=== PATIENT | female | born 1965 | race Caucasian/White ===

== ENCOUNTER → 2025-01-03 | Outpatient (CLI) | payer MEDICARE, MEDICAID, SELFPAY ==
[2025-01-03 14:14] LABS: Basophils # (Auto) 0.1 Thou/mm3 (0.0-0.2); Basophils % (Auto) 1 % (0-2.5); Eosinophils # (Auto) 0.2 Thou/mm3 (0.0-0.5); Eosinophils % (Auto) 3 % (0-10); Hematocrit 34.7 % (36.0-46.0); Hemoglobin 11.3 g/dL (12.0-16.0); Immature Granulocytes % (Auto) 0 % (0-0); Immature Granulocytes Auto 0.01 Thou/mm3 (0.00-0.00); Lymphocytes % (Auto) 32 % (10-50); Mean Corpuscular HGB Conc 32.6 g/dl (31.0-37.0); Mean Corpuscular Hemoglobin 30.7 pg (25.0-35.0); Mean Corpuscular Volume 94 fL (80-100); Monocytes # (Auto) 0.4 Thou/mm3 (0.0-0.8); Monocytes % (Auto) 6 % (0-12); Neutrophils # (Auto) 3.7 Thou/mm3 (1.8-7.7); Neutrophils % (Auto) 58 % (37-80); Nucleated Red Blood Cell % 0 /100 WBC (0); Platelet Count 221 Thou/mm3 (140-440); RDW Standard Deviation 46.5 fL (36.4-46.3); Red Blood Count 3.68 Miln/mm3 (4.00-5.20); White Blood Count 6.3 Thou/mm3 (3.6-11.0)
[2025-01-03 14:30] LABS: Alanine Aminotransferase 25 U/L (10-49); Albumin/Globulin Ratio 1.8 (1.2-2.2); Alkaline Phosphatase 45 U/L (46-116); Anion Gap 8 (7-16); Aspartate Amino Transferase 21 U/L (0-34); BUN/Creatinine Ratio 23 Ratio (12-20); Bilirubin,Total 0.3 mg/dL (0.3-1.2); Blood Urea Nitrogen 28 mg/dL (9-23); Calcium 8.9 mg/dL (8.3-10.6); Calcium (Corrected) 8.9 mg/dL (8.5-10.1); Carbon Dioxide 25.9 mMol/L (20.0-31.0); Cardiac Risk Estimate 2.1 RATIO (3.7-5.6); Chloride 108 mMol/L (98-107); Cholesterol 122 mg/dL (132-200); Creatinine (Component) 1.2 mg/dL (0.6-1.3); Free T4 (Free Thyroxine) 0.86 ng/dL (0.89-1.76); Globulin 2.2 gm/dL (2.3-3.5); Glucose 75 mg/dL (74-106); HDL Cholesterol 58 mg/dL (40-60); LDL Cholesterol,Calculated 52 mg/dL (0-130); Osmolality,Calculated 287 (275-295); Potassium 4.2 mMol/L (3.4-5.1); Sodium 142 mMol/L (136-145); Thyroid Stimulating Hormone 2.01 uIU/mL (0.55-4.78); Total Protein 6.2 gm/dL (5.7-8.2); Triglycerides 60 mg/dL (30-150); eGFR 52 See Note
[2025-01-03 14:33] LABS: Glucose Estimated Average 91 mg/dL (80-131); Hemoglobin A1C 4.8 % Hgb (4.8-6.0)
[2025-01-03 14:45] LABS: Syphilis Nonreactive (Nonreactive)
[2025-01-03 15:03] LABS: Hepatitis C Antibody Non Reactive (Non React); Vitamin D 25 Hydroxy Total 31.7 ng/mL (7.3-40.2)
[2025-01-06 22:08] LABS: HCV RNA, PCR <15 NOT DETECTED IU/mL
[2025-01-07 07:04] LABS: HCV RNA, PCR Log IU <1.18 NOT DETECTED Log IU/mL
== END | disposition home or self-care (01) ==
LOC: COPL 13:04
PROVIDERS: PCP Internal Medicine; Referring Provider Internal Medicine; Visit Provider Internal Medicine
DX: Z11.3 Encounter for screening for infections with a predominantly sexual mode of transmission (principal); Z76.89 Persons encountering health services in other specified circumstances
CPT/HCPCS: 36415; 80053; 80061; 82306; 83036; 84439; 84443; 85025; 86780; 86803; 87522

== ENCOUNTER 2025-02-04 14:25 | Emergency (ER) | payer MEDICARE, MEDICAID, SELFPAY ==
[2025-02-04 14:26] VITALS: BMI 22.1
[2025-02-04 14:51] VITALS: BP 97/54; PULSE 76; RESP 18; TEMP 36.9; O2SAT 96
--- NOTE | 2025-02-04 14:58 | PD.EDRME ---
Rapid Medical Screening Exam RME Arrival date/time: 02/04/25 14:25 Chief Complaint: General Adult/Misc Complain Time Seen by Provider: 02/04/25 14:35 Vital signs: Vital Signs Temperature 98.4 F 02/04/25 14:51 Pulse Rate 76 02/04/25 14:51 Respiratory Rate 18 02/04/25 14:51 Blood Pressure 97/54 L 02/04/25 14:51 Pulse Oximetry (%) 96 02/04/25 14:51 Oxygen Delivery Method Room Air 02/04/25 14:51 RME Narrative: General weakness the past 2 weeks with BPs in systolic 80-90s since Tuesday. Patient c/o urinary urgency and pressure. No fever, vomiting or flank pain.
--- NOTE | 2025-02-04 14:59 | EKG_ITS ---
[facility] Test Date: 2025-02-04 Pat Name: HERSON PROCTOR Department: Room: - Gender: Female Last Ironer: : 1965 Requested By: Sivakumar Young Order Number: [id number] Reading MD: Sivakumar Young Measurements Intervals [place] Rate: 72 P: 76 MT: 165 QRS: 58 QRSD: 82 T: 70 QT: 393 QTc: 433 Interpretive Statements SINUS RHYTHM No previous ECG available for comparison /store/S0/[id number]
[2025-02-04 15:19] LABS: Basophils # (Auto) 0.1 Thou/mm3 (0.0-0.2); Basophils % (Auto) 1 % (0-2.5); Eosinophils # (Auto) 0.2 Thou/mm3 (0.0-0.5); Eosinophils % (Auto) 3 % (0-10); Hematocrit 35.2 % (36.0-46.0); Hemoglobin 11.4 g/dL (12.0-16.0); Immature Granulocytes % (Auto) 0 % (0-0); Immature Granulocytes Auto 0.02 Thou/mm3 (0.00-0.00); Lymphocytes # (Auto) 2.1 Thou/mm3 (1.0-4.8); Lymphocytes % (Auto) 29 % (10-50); Mean Corpuscular HGB Conc 32.4 g/dl (31.0-37.0); Mean Corpuscular Hemoglobin 30.8 pg (25.0-35.0); Mean Corpuscular Volume 95 fL (80-100); Monocytes # (Auto) 0.4 Thou/mm3 (0.0-0.8); Monocytes % (Auto) 5 % (0-12); Neutrophils # (Auto) 4.5 Thou/mm3 (1.8-7.7); Neutrophils % (Auto) 62 % (37-80); Nucleated Red Blood Cell % 0 /100 WBC (0); Platelet Count 216 Thou/mm3 (140-440); RDW Standard Deviation 49.1 fL (36.4-46.3); White Blood Count 7.3 Thou/mm3 (3.6-11.0)
[2025-02-04 15:39] LABS: Alanine Aminotransferase 32 U/L (10-49); Albumin, Serum 4.2 gm/dL (3.4-4.8); Albumin/Globulin Ratio 1.8 (1.2-2.2); Alkaline Phosphatase 44 U/L (46-116); Anion Gap 8 (7-16); Aspartate Amino Transferase 39 U/L (0-34); BUN/Creatinine Ratio 22 Ratio (12-20); Bilirubin,Total 0.2 mg/dL (0.3-1.2); Blood Urea Nitrogen 28 mg/dL (9-23); Calcium 9.2 mg/dL (8.3-10.6); Calcium (Corrected) 9.2 mg/dL (8.5-10.1); Carbon Dioxide 21.7 mMol/L (20.0-31.0); Chloride 111 mMol/L (98-107); Creatinine (Component) 1.3 mg/dL (0.6-1.3); Estimated Creatinine Clearance 41.4 mL/min (>60); Globulin 2.4 gm/dL (2.3-3.5); Glucose 93 mg/dL (74-106); Osmolality,Calculated 286 (275-295); Potassium 4.8 mMol/L (3.4-5.1); Sodium 141 mMol/L (136-145); Total Protein 6.6 gm/dL (5.7-8.2); Troponin I < 0.002 ng/mL (0.0-0.045); eGFR 47 See Note
[2025-02-04 15:56] LABS: Collection Type, Urine Clean Catch
[2025-02-04 16:10] LABS: Bilirubin,Urine Negative (Negative); Blood,Urine Negative (Negative); Clarity,Urine Clear (Clear/Hazy); Color,Urine Drk-Yellow (Lt Yel-Yel); Glucose, Urine Negative (Negative); Ketones,Urine Negative (Negative); Leukocyte Esterase,Urine Negative (Negative); Nitrite,Urine Negative (Negative); PH,Urine 5.5 (5.0-7.0); Protein,Urine Negative (Neg - Trace); RBC,Urine 1 /hpf (0-3); Specific Gravity,Urine 1.016 (1.001-1.035); Squamous Epithelial Cell,Urine 3 /hpf (0-5); Transitional Epi Cells,Urine < 1 /hpf (0-5); Urobilinogen,Urine Negative mg/dL (0.0-1.0); WBC,Urine 2 /hpf (0-5)
--- NOTE | 2025-02-04 19:12 | PC.NURSE ---
NO ANSWER AT ER LOBBY OR OUTSIDE ER TO BE RE EVALUATED.
--- NOTE | 2025-02-04 19:37 | PC.NURSE ---
NO ANSWER FOR VITALS AND REVIEW
--- NOTE | 2025-02-04 20:04 | PD.EDADDENDU ---
Emergency Room Addendum Addendum Narrative: Patient was initially seen by our RICARDO and diagnostic tests ordered. When I looked for the patient to start my evaluation and treatment, I was told the patient eloped. Long Horvath MD
== END 2025-02-04 19:37 | disposition left against medical advice (07) ==
PROVIDERS: Physician Assistant; Emergency Provider Emergency Medicine; PCP Internal Medicine
DX: R53.1 Weakness (principal); R39.15 Urgency of urination; Z53.29 Procedure and treatment not carried out because of patient's decision for other reasons
CPT/HCPCS: 36415; 80053; 81001; 84484; 85025; 87086; 93005; 99281

== ENCOUNTER → 2025-02-25 | Outpatient (CLI) | payer MEDICARE, MEDICAID, SELFPAY ==
--- NOTE | 2025-02-25 | XR_ITS ---
Examination: Lumbar spine 3 views TECHNIQUE: AP lateral coned lateral lower lumbar spine 3 views Exam date and time: February 25, 2025 1128 hours INDICATIONS: Low back pain several years. FINDINGS: Lumbar dextroscoliosis 12 degrees Transpedicular lumbar fusion L4-S1 with anatomic alignment Mild to moderate lumbar degenerative disc disease above the fusion site No lumbar fracture IMPRESSION: Mild to moderate lumbar degenerative disc disease above the fusion site
--- NOTE | 2025-02-25 | XR_ITS ---
Examination: Cervical spine 3 views Technique one AP lateral coned AP odontoid cervical spine 3 views Exam date and time: February 25, 2025 1115 hours INDICATIONS: Neck pain beginning several years ago. FINDINGS: Adequate alignment cervical vertebral bodies. No cervical fracture. Intact odontoid. Moderate to advanced degenerative disc disease C5-C6 IMPRESSION: Moderate to advanced degenerative disc disease C5-C6
== END | disposition home or self-care (01) ==
LOC: CDIM 10:36
PROVIDERS: PCP Internal Medicine; Referring Provider Internal Medicine Pulmonary Disease; Visit Provider Internal Medicine Pulmonary Disease
DX: M51.369 Other intervertebral disc degeneration, lumbar region without mention of lumbar back pain or lower extremity pain (principal); M43.26 Fusion of spine, lumbar region; M50.322 Other cervical disc degeneration at C5-C6 level
CPT/HCPCS: 72040; 72100

== ENCOUNTER 2025-04-29 16:27 | Inpatient (IN) | payer MEDICARE, MEDICAID, SELFPAY ==
[2025-04-29] VITALS (22 sets, daily range): BP systolic 73–154; BP diastolic 40–88; PULSE 43–82; RESP 2–100; TEMP 36.6; O2SAT 97–100; BMI 23.3; BMI 21.6
--- NOTE | 2025-04-29 16:56 | EKG_ITS ---
[facility] Test Date: 2025-04-29 Pat Name: HERSON PROCTOR Department: Room: - Gender: Female Gymnastic Teacher: : 1965 Requested By: Dewayne Chapman Order Number: [id number] Reading MD: Dewayne Chapman Measurements Intervals [place] Rate: 51 P: 58 PA: 182 QRS: 2 QRSD: 89 T: 36 QT: 436 QTc: 403 Interpretive Statements SINUS BRADYCARDIA Compared to ECG 02/04/2025 15:05:33 Sinus rhythm no longer present /store/S0/[id number]/[id number].pdf
--- NOTE | 2025-04-29 16:56 | XR_ITS ---
Examination: AP chest single view TECHNIQUE: AP portable upright chest single view Date and time: April 29, 2025 at 1716 hours INDICATIONS: Cough and shortness of breath chest pain beginning 3 days ago. FINDINGS: Minimal prominence left ventricle Mild vascular congestion. No lobar pneumonia or pulmonary edema. Moderate osteopenia IMPRESSION: Mild vascular congestion.
[2025-04-29] MEDS: DEXTROSE 50%-WATER INJ 50 ML SYRINGE IVP ×2 (17:14→20:45)
--- NOTE | 2025-04-29 17:14 | PD.EDWEAK ---
ED Weakness RME/HPI General Chief complaint: Weakness Stated complaint: WEAKNESS Time Seen by Provider: 04/29/25 16:41 Arrival date/time: 04/29/25 16:27 Limitations: no limitations RME / HPI RME / HPI Narrative: 59 year old female presents to the ED BIBA from her PCP's office due to 5-6 days of progressive weakness. She reports experiencing dark stools during this time but denies any bright red blood or visible blood in the stool. Normally active and states she has felt significantly fatigued over the past several days. She has required rest with minimal activity. She also notes poor oral intake over this same period. At her PCP?s office, her blood glucose was 48 and blood pressure in the 70s systolic. Medical hx includes gastric bypass, a prior gastric tumor, gastric resection with esophagojejunostomy. Related Data Home Medications ?Medication ?Instructions ?Recorded ?Confirmed carisoprodol 350 mg tablet 350 mg PO QIDPRN PRN PAIN 30 days 03/19/14 11/01/22 ##0 escitalopram oxalate 20 mg tablet 20 mg PO QDAY 30 days ##0 03/19/14 11/01/22 (Lexapro) gabapentin 300 mg capsule 300 mg PO TID #0 caps 03/19/14 11/01/22 montelukast 10 mg tablet 10 mg PO HS #0 tabs 03/19/14 11/01/22 (Singulair) verapamil 240 mg tablet,extended 240 mg PO HS ##0 03/19/14 11/01/22 release (Calan SR) albuterol sulfate 90 mcg/actuation 90 mcg inhalation PRN PRN Wheezing 08/17/21 11/01/22 aerosol inhaler aspirin 81 mg tablet,delayed 81 mg PO BID 08/17/21 11/01/22 release biotin 10,000 mcg capsule 10,000 mcg PO QDAY 08/17/21 11/01/22 bupropion HCl 150 mg tablet,12 hr 300 mg PO QDAY 08/17/21 11/01/22 sustained-release cholecalciferol (vitamin D3) 50 50 mcg PO BID 08/17/21 11/01/22 mcg (2,000 unit) capsule (Vitamin D3) clonidine HCl 0.1 mg tablet 0.1 mg PO QDAY 08/17/21 11/01/22 cyanocobalamin (vitamin B-12) 100 100 mcg PO QDAY 08/17/21 11/01/22 mcg tablet (Vitamin B-12) ferrous sulfate 325 mg (65 mg 325 mg PO QDAY 08/17/21 11/01/22 iron) tablet (Iron (ferrous sulfate)) hydrocodone 5 mg-acetaminophen 325 5 - 325 tab PO BID 08/17/21 11/01/22 mg tablet Held on 11/01/22. Instructions: Resume on 11/02/22. lisinopril 20 mg tablet 20 mg PO QDAY 08/17/21 11/01/22 pantoprazole 40 mg tablet,delayed 40 mg PO QDAY 08/17/21 11/01/22 release rosuvastatin 5 mg tablet 5 mg PO QDAY 08/17/21 11/01/22 topiramate 50 mg tablet 50 mg PO TID 08/17/21 11/01/22 verapamil 180 mg tablet,extended 180 mg PO QDAY 08/17/21 11/01/22 release vitamin B complex (Complex B-100 1 tab PO QDAY 08/17/21 11/01/22 tablet,extended release) Allergies Allergy/AdvReac Type Severity Reaction Status Date / Time Adhesives Allergy Mild Hives Uncoded 04/29/25 17:00 Review of Systems Review of Systems Systems Reviewed: All systems reviewed, normal except as documented Past Medical History Past Medical History NEUROLOGIC: Positive Neurological Disorders, Transient Ischemic Attacks (TIA) (MULTIPLE), Brain Tumor, Seizures and Migraine CARDIAC: Positive Cardiac Disorders, Coronary Artery Disease (mitral valve) and Hypertension; Negative Congestive Heart Failure RESPIRATORY: Positive Chronic Obstructive Pulmonary Disease (COPD) GASTROINTESTINAL: Positive Gastrointestinal Disorders, Gall Bladder Disease and Gastroesophageal Reflux Disease GENITOURINARY: Negative Genitourinary Disorders or Renal Disease MUSCULOSKELETAL: Positive Musculoskeletal Disorders, Fibromyalgia and Fractures ENDOCRINE: Positive Endocrine Disorders and Hypoglycemia; Negative Diabetes Mellitus Type 1 or Diabetes Mellitus Type 2 HEMATOLOGIC: Negative Blood Disorders PSYCHO/SOCIAL: Positive Depression OTHER HISTORY: Positive Blood Transfusions, Chemotherapy, Radiation Therapy, Chicken Pox, Cancer (gastric) and Cervical Cancer; Negative Autoimmune Disease, Blood Transfusion Reaction or Anesthesia Reactions Family History FAMILY HISTORY: Negative Family Cardiac Disorders Surgical History SURGICAL: Positive Open Reduction Internal Fixation (bilateral ANKLES), Hysterectomy and Section (x4) Social History SMOKING STATUS: Never smoker ED Exam General Limitations: Present no limitations General appearance: Present alert, in no apparent distress and other (pale ) Head Head exam: Present atraumatic, normocephalic and normal inspection Eye Eye exam: Present normal appearance, PERRL and EOMI ENT ENT exam: Present normal exam, normal oropharynx and mucous membranes dry Neck Neck exam: Present normal inspection, full ROM and trachea midline Chest Chest inspection: Present normal inspection and symmetric chest wall rise Respiratory Respiratory exam: Present normal lung sounds bilaterally Cardiovascular Cardiovascular exam: Present regular rate, normal rhythm and normal heart sounds Abdominal Exam Abdominal exam: Present soft and normal bowel sounds Extremities Exam Extremities exam: Present normal inspection and full ROM Back Exam Back exam: Present normal inspection and full ROM Neurological Exam Neurological exam: Present alert, oriented X3 and CN II-XII intact Psychiatric Psychiatric exam: Present normal affect and normal mood Skin Skin exam: Present warm, dry, intact and pallor Course Quality Measures none Orders Category Date Time Status COVID-19 Screening Questionnaire NOW Care 04/29/25 19:51 Active Adjunct Psychology Professor NOW Care 04/29/25 16:56 Active Continuous Pulse Oximetry NOW Care 04/29/25 16:56 Completed Decision to Admit X1 Care 04/29/25 19:51 Active EKG (ED ONLY) *Do not use* NOW Care 04/29/25 16:56 Completed Glucose [Bedside Blood Glucose] NOW Care 04/29/25 17:33 Active Insert IV NOW Care 04/29/25 16:56 Active Occult Blood,Stool (Nursing) NOW Care 04/29/25 16:53 Active Consult to Gastroenterology Stat Cons 04/29/25 19:[address] abdomen pelvis wo con Stat Exams 04/29/25 17:37 Taken EKG (ED Only) Stat Exams 04/29/25 16:56 Draft XR chest 1V portable Stat Exams 04/29/25 16:56 Completed BNP [B-Type Natriuretic Peptide] Stat Lab 04/29/25 17:08 Completed CBC Stat Lab 04/29/25 17:08 Completed Comprehensive Metabolic Panel Stat Lab 04/29/25 17:08 Completed Partial Thromboplastin Time Stat Lab 04/29/25 17:08 Completed Prothrombin Time with INR Stat Lab 04/29/25 17:08 Completed Troponin I Stat Lab 04/29/25 17:08 Completed Type and Screen Stat Lab 04/29/25 17:08 Completed Urinalysis Stat Lab 04/29/25 16:56 Ordered Atropine Inj SYR Med 04/29/25 18:23 Discontinued 1 mg .ROUTE .STK-MED ONE Atropine Inj SYR Med 04/29/25 18:28 Discontinued 1 mg IVP X1 ONE Dextrose 10%-Water 1000 ml [D10w 1000 ml] 1,000 ml Med 04/29/25 16:58 Active IV 50 mls/hr Dextrose 50% Syr [D50w Syringe Abboject] Med 04/29/25 16:53 Discontinued 50 ml IVP X1 ONE Norepinephrine/D5W 8mg/250ml [Levophed in D5W 8mg/250ml Med 04/29/25 17:33 Active ] 8 mg in 250 ml IV 0.05 mcg/kg/min Pantoprazole Inj [Protonix Inj] Med 04/29/25 17:05 Discontinued 40 mg IVP X1 ONE Sodium Chloride 0.9% 1000 ml [Ns] 1,000 ml Med 04/29/25 16:53 Discontinued IV 999 mls/hr Sodium Chloride 0.9% 1000 ml [Ns] 1,000 ml Med 04/29/25 17:33 Discontinued IV 999 mls/hr Oxygen Delivery NOW RT 04/29/25 16:56 Active Vital Signs Vital signs: Vital Signs Temperature 97.9 F 04/29/25 16:35 Pulse Rate 58 L 04/29/25 16:35 Respiratory Rate 16 04/29/25 16:35 Blood Pressure 73/40 L 04/29/25 16:35 Pulse Oximetry (%) 99 04/29/25 16:35 Oxygen Delivery Method Room Air 04/29/25 16:35 Pulse ox is 99% on room air which is adequate. Weakness MDM Narrative MDM Narrative:: Jennie Caruso am scribing for and in the presence of Dr. Buchanan. 1800: Patient signed out to Dr. Metcalf pending CT and labs. Patient data External records reviewed:: [facility] previous records and EMS form Clinical information provided by:: patient and EMS Social determinants that could affect healthcare access:: none Patient has the following chronic illnesses:: gastric bypass, a prior gastric tumor, gastric resection with esophagojejunostomy. How is presenting disease/condition affected by chronic disease/condition?: exacerbated by Evaluation data The following diagnostics were reviewed and interpreted by me:: lab results, radiology exam(s) and EKG tracing(s) (04/29/2025 @ 17:04. Sinus bradycardia, rate 51, no STEMI. ) Lab and/or radiology exams considered but not ordered:: None Interpretation Summary: Ordering Physician: Dewayne Buchanan MD Date of Service: 04/29/25 Procedure(s): XR chest 1V portable Accession Number(s): [id number] cc: Dewayne Buchanan MD; Oj Li MD~ Examination: AP chest single view TECHNIQUE: AP portable upright chest single view Date and time: April 29, 2025 at 1716 hours INDICATIONS: Cough and shortness of breath chest pain beginning 3 days ago. FINDINGS: Minimal prominence left ventricle Mild vascular congestion. No lobar pneumonia or pulmonary edema. Moderate osteopenia IMPRESSION: Mild vascular congestion. Dictated By: Oj Li MD Signed By: <Electronically signed by Oj Li MD in OV> 04/29/25 1728 Medications / Prescriptions Medications or Prescriptions considered but not ordered:: None Medication administrations:: Medication Administration History Dextrose (D10w 1000 Ml) 1,000 mls @ 50 mls/hr IV .Q20H SULEMAN Stop: 04/30/25 12:57 Last Admin: 04/29/25 17:21 Dose: 50 mls/hr Documented By: TM Norepinephrine/Dextrose (Levophed In D5w 8mg/250ml) 8 mg in 250 mls @ 5.528 mls/hr IV .Q24H PRN; Protocol PRN Reason: PER PROTOCOL Stop: 05/29/25 17:32 Last Titration: 04/29/25 18:48 Dose: 0.07 mcg/kg/min, 7.739 mls/hr Documented By: Titration: 04/29/25 18:33 Dose: 0.07 mcg/kg/min, 7.739 mls/hr Documented By: Titration: 04/29/25 18:18 Dose: 0.07 mcg/kg/min, 7.739 mls/hr Documented By: Titration: 04/29/25 18:03 Dose: 0.07 mcg/kg/min, 7.739 mls/hr Documented By: Titration: 04/29/25 17:58 Dose: 0.07 mcg/kg/min, 7.739 mls/hr Documented By: Titration: 04/29/25 17:53 Dose: 0.07 mcg/kg/min, 7.739 mls/hr Documented By: Admin: 04/29/25 17:48 Dose: 0.05 mcg/kg/min, 5.528 mls/hr Documented By: TM Discontinued Medications Atropine Sulfate (Atropine Sulf Inj 0.1 Mg/Ml Syr 10 Ml) Confirm Administered Dose 1 mg .ROUTE .STK-MED ONE Stop: 04/29/25 18:24 Last Admin: 04/29/25 18:36 Dose: Not Given Documented By: TM Non-Admin Reason: Override Medication Atropine Sulfate (Atropine Sulf Inj 0.1 Mg/Ml Syr 10 Ml) 1 mg IVP X1 ONE Stop: 04/29/25 18:29 Last Admin: 04/29/25 18:28 Dose: 1 mg Documented By: TM Dextrose (Dextrose 50%-Water Inj 50 Ml Syringe) 50 ml IVP X1 ONE Stop: 04/29/25 16:54 Last Admin: 04/29/25 17:14 Dose: 50 ml Documented By: TM Sodium Chloride (Ns) 1,000 mls @ 999 mls/hr IV .Q1H1M ONE Stop: 04/29/25 17:53 Last Infusion: 04/29/25 18:26 Dose: Infused Documented By: Admin: 04/29/25 17:25 Dose: 999 mls/hr Documented By: TM Sodium Chloride (Ns) 1,000 mls @ 999 mls/hr IV .Q1H1M ONE Stop: 04/29/25 18:33 Last Admin: 04/29/25 17:47 Dose: 999 mls/hr Documented By: TM Pantoprazole Sodium (Pantoprazole Inj 40 Mg Vial) 40 mg IVP X1 ONE Stop: 04/29/25 17:06 Last Admin: 04/29/25 17:19 Dose: 40 mg Documented By: TM See above Consultations Consultation(s) initiated? (list below): No Diagnosis Weakness Differential Diagnosis: acute myocardial infarction, hypoglycemia, hypothyroidism, rhabdomyolysis, sepsis and dehydration Most likely diagnosis given after review of the tests above:: Hypoglycemia Hypotension Admission Indicated Admission indicated?: not indicated Explain why admission is indicated or not indicated:: Signed out pending final disposition Admission Request Was there a request for admission?: No Disposition Plan Disposition Plan: other (specify) (signed out to Dr. Metcalf pending CT and labs. ) Discharge Plan Plan Patient Disposition: Admit Acute Care w/in Hospital Prescriptions/Referrals Prescriptions/Med Rec: No Action carisoprodol 350 MG tablet 350 mg PO QIDPRN PRN (Reason: PAIN) 30 Days Qty: 0 gabapentin 300 MG capsule 300 mg PO TID Qty: 0 verapamil [Calan SR] 240 MG tablet extended release 240 mg PO HS Qty: 0 montelukast [Singulair] 10 MG tablet 10 mg PO HS Qty: 0 escitalopram oxalate [Lexapro] 20 MG tablet 20 mg PO QDAY 30 Days Qty: 0 bupropion HCl 150 mg tablet sustained-release 12 hr 300 mg PO QDAY Patient Comments: take 1 tablet by mouth once daily clonidine HCl 0.1 mg tablet 0.1 mg PO QDAY Complex B-100 Tablet Extended Release 1 tab PO QDAY cyanocobalamin (vitamin B-12) [Vitamin B-12] 100 mcg Tablet 100 mcg PO QDAY hydrocodone-acetaminophen 5-325 mg tablet 5 - 325 tab PO BID lisinopril 20 mg tablet 20 mg PO QDAY verapamil 180 mg tablet extended release 180 mg PO QDAY aspirin 81 mg tablet,delayed release (DR/EC) 81 mg PO BID Patient Comments: take 1 tablet by mouth once daily pantoprazole 40 mg tablet,delayed release (DR/EC) 40 mg PO QDAY biotin 10,000 mcg Capsule 10,000 mcg PO QDAY ferrous sulfate [Iron (ferrous sulfate)] 325 mg (65 mg iron) Tablet 325 mg PO QDAY albuterol sulfate 90 mcg/actuation HFA aerosol inhaler 90 mcg INHALATION PRN PRN (Reason: Wheezing) rosuvastatin 5 mg tablet 5 mg PO QDAY topiramate 50 mg tablet 50 mg PO TID cholecalciferol (vitamin D3) [Vitamin D3] 50 mcg (2,000 unit) Capsule 50 mcg PO BID Referrals: No Primary/Family,Physician [Referring Provider] - In 1 week Problem List Clinical Impression: Hypoglycemia, Symptomatic sinus bradycardia, Shock, Melena Patient/Caregiver Discharge Instructions Print Language: Monegasque Stand Alone Forms: Kayce Award Info., Patient Portal Info Letter
[2025-04-29] MEDS: PANTOPRAZOLE INJ 40 MG VIAL IVP ×2 (17:19→22:06)
[2025-04-29] MEDS: DEXTROSE 10%-WATER 1000 ML 1,000 ML 50 ML IV (17:21)
[2025-04-29] MEDS: SODIUM CHLORIDE 0.9% 1000 ML 1,000 ML 999 ML IV ×2 (17:25→17:47)
[2025-04-29 17:31] LABS: Basophils # (Auto) 0.1 Thou/mm3 (0.0-0.2); Basophils % (Auto) 1 % (0-2.5); Eosinophils # (Auto) 0.2 Thou/mm3 (0.0-0.5); Eosinophils % (Auto) 4 % (0-10); Hematocrit 28.9 % (36.0-46.0); Hemoglobin 9.6 g/dL (12.0-16.0); Immature Granulocytes % (Auto) 0 % (0-0); Immature Granulocytes Auto 0.01 Thou/mm3 (0.00-0.00); Lymphocytes # (Auto) 1.4 Thou/mm3 (1.0-4.8); Lymphocytes % (Auto) 28 % (10-50); Mean Corpuscular HGB Conc 33.2 g/dl (31.0-37.0); Mean Corpuscular Hemoglobin 31.8 pg (25.0-35.0); Mean Corpuscular Volume 96 fL (80-100); Monocytes # (Auto) 0.4 Thou/mm3 (0.0-0.8); Monocytes % (Auto) 9 % (0-12); Neutrophils # (Auto) 2.8 Thou/mm3 (1.8-7.7); Neutrophils % (Auto) 58 % (37-80); Nucleated Red Blood Cell % 0 /100 WBC (0); Platelet Count 155 Thou/mm3 (140-440); RDW Standard Deviation 48.5 fL (36.4-46.3); Red Blood Count 3.02 Miln/mm3 (4.00-5.20); White Blood Count 4.8 Thou/mm3 (3.6-11.0)
--- NOTE | 2025-04-29 17:37 | XR_ITS ---
Examination: CT abdomen and pelvis without contrast. Coronal 3-D reconstructions. Sagittal 2-D reconstructions. Date and time of exam:April 29, 2025 1934 hours INDICATIONS: Weakness Black stools beginning one week ago CTDI: vol (mGy): 5.91 DLP: (mGycm): 349 Technique: Axial images of the abdomen have been obtained, 3 mm slice thickness Intravenous contrast material has not been administered. Low dose protocols were performed. One or more of the following dose reduction techniques were used; automated exposure control, adjustment of the mA and/or KV according to patient size, use of iterative reconstruction technique. Findings: Small retrocardiac gastric hernia No focal liver lesions Absent gallbladder. No pancreatic mass Spleen is not enlarged No renal or ureteral calculi No bowel obstruction Appendix partially visualized noninflamed No diverticulitis Rectal wall is prominently thickened sagittal image 85 Lumbar fusion L4-S1 with satisfactory alignment IMPRESSION: Prominent rectal wall thickening, differential would include rectal carcinoma, recommend direct inspection
[2025-04-29 17:42] LABS: Partial Thromboplastin Time 23.2 Seconds (22.0-36.0); Prothrombin Time 10.8 Seconds (9.0-12.2)
[2025-04-29 17:46] LABS: B-Type Natriuretic Peptide 168 pg/mL (0-100)
[2025-04-29] MEDS: Norepinephrine/D5W 8mg/250ml 8 MG/250 ML BAG 5.528 MG IV (17:48)
[2025-04-29 17:58] LABS: Alanine Aminotransferase 22 U/L (10-49); Albumin, Serum 3.4 gm/dL (3.4-4.8); Alkaline Phosphatase 41 U/L (46-116); Anion Gap 7 (7-16); Aspartate Amino Transferase 21 U/L (0-34); BUN/Creatinine Ratio 18 Ratio (12-20); Bilirubin,Total 0.2 mg/dL (0.3-1.2); Blood Urea Nitrogen 30 mg/dL (9-23); Calcium (Corrected) 8.5 mg/dL (8.5-10.1); Chloride 114 mMol/L (98-107); Creatinine (Component) 1.7 mg/dL (0.6-1.3); Estimated Creatinine Clearance 31.7 mL/min (>60); Globulin 1.7 gm/dL (2.3-3.5); Osmolality,Calculated 288 (275-295); Potassium 4.5 mMol/L (3.4-5.1); Sodium 143 mMol/L (136-145); Total Protein 5.1 gm/dL (5.7-8.2); Troponin I < 0.002 ng/mL (0.0-0.045); eGFR 34 See Note
[2025-04-29 18:01] LABS: Glucose 40 mg/dL (74-106)
--- NOTE | 2025-04-29 18:08 | PD.EDADDENDU ---
Emergency Room Addendum <Adrienne Quiroz - Last Filed: 04/29/25 19:55> Addendum Narrative: 1800: Care assumed from Dr. Metcalf, the previous shift emergency physician. Past medical, surgical, social and family history reviewed. Vitals and home medications reviewed. Results and treatment plan discussed. I will assume the care of the patient at this time and will follow the patient, pending CT abdomen pelvis and labs. Please refer to the emergency department record for history and examination from initial visit. 59yo female with a history of gastric bypass, a prior gastric tumor s/p gastric resection with esophagojejunostomy, CAD, HTN presents to the ED for complaints of not feeling right and generalized weakness x 1 week. Patient states she has been unable to see and has had black stools for the last 1 week. She was seen at her PCP's office and was sent over for evaluation. No fever or chills. She is not on any blood thinners. No recent medication changes. Cloth Shrinking Tester is Dr. Shelton. 1823: Called to the bedside by the nurse due to the patient's HR dropping to 38. Pads placed and Atropine 1mg ordered. EKG done at 1825, sinus bradycardia, rate of 47, normal intervals, nonspecific ST-T changes, no acute ischemia, according to my interpretation. 1847: Patient responded well to the atropine, now has a HR of 85. 1944: Discussed case with the resident physician, attending Dr. Vargas from Hospitalist service regarding admission. Discussed patients ED course, exam findings, labs, and radiology results. The Hospitalist agrees to accept the patient for admission. 1953: Discussed case with Dr. Aguilar from GI regarding consultation. Discussed patients ED course, exam findings, labs, and radiology results. Agrees to consult. <Saranya Metcalf MD - Last Filed: 04/29/25 19:58> Addendum Narrative: 1800: Care assumed from Dr. Metcalf, the previous shift emergency physician. Past medical, surgical, social and family history reviewed. Vitals and home medications reviewed. Results and treatment plan discussed. I will assume the care of the patient at this time and will follow the patient, pending CT abdomen pelvis and labs. Please refer to the emergency department record for history and examination from initial visit. 59yo female with a history of gastric bypass, a prior gastric tumor s/p gastric resection with esophagojejunostomy, CAD, HTN presents to the ED for complaints of not feeling right and generalized weakness x 1 week. Patient states she has been unable to see and has had black stools for the last 1 week. She was seen at her PCP's office and was sent over for evaluation. No fever or chills. She is not on any blood thinners. No recent medication changes. Cloth Shrinking Tester is Dr. Shelton. 1823: Called to the bedside by the nurse due to the patient's HR dropping to 38. Pads placed and Atropine 1mg ordered. EKG done at 1825, sinus bradycardia, rate of 47, normal intervals, nonspecific ST-T changes, no acute ischemia, according to my interpretation. 1847: Patient responded well to the atropine, now has a HR of 85. 1944: Discussed case with attending Dr. Vargas from Hospitalist service regarding admission. Dr. Vargas will place cardiology consult. Discussed patients ED course, exam findings, labs, and radiology results. The Hospitalist agrees to accept the patient for admission. 1953: Discussed case with Dr. Aguilar from GI regarding consultation. Discussed patients ED course, exam findings, labs, and radiology results. Agrees to consult.
[2025-04-29] MEDS: ATROPINE SULF INJ 0.1 MG/ML SYR 10 ML 1 MG IVP (18:28)
--- NOTE | 2025-04-29 18:37 | PC.NURSE ---
PTS HR DROPPED TO 37, NOTIFIED, CAME TO BEDSIDE GAVE VERBAL FOR 1MG ATROPINE IVP X1. PT GIVEN MEDICATION AND HR IS NOW IN THE LOW 90S.
[2025-04-29 20:07] LABS: Collection Type, Urine Clean Catch
[2025-04-29 20:16] LABS: Bilirubin,Urine Negative (Negative); Blood,Urine Negative (Negative); Clarity,Urine Clear (Clear/Hazy); Color,Urine Lt-Yellow (Lt Yel-Yel); Glucose, Urine Negative (Negative); Ketones,Urine Negative (Negative); Leukocyte Esterase,Urine Negative (Negative); Nitrite,Urine Negative (Negative); PH,Urine 6.5 (5.0-7.0); Protein,Urine Negative (Neg - Trace); RBC,Urine 3 /hpf (0-3); Specific Gravity,Urine 1.007 (1.001-1.035); Squamous Epithelial Cell,Urine < 1 /hpf (0-5); Urobilinogen,Urine Negative mg/dL (0.0-1.0); WBC,Urine 2 /hpf (0-5)
--- NOTE | 2025-04-29 20:19 | PD.HHHP ---
Documentation for date of: 04/29/25 HPI - Hospitalist History of Present Illness History of present illness: 59-year-old female with history of hypertension, chronic pain, gastric cancer status post gastrectomy in [facility] [place], migraine headaches, and hyperlipidemia, who presented with a chief complaint of generalized weakness. She was in her usual state of health until about 1 week prior to admission. Patient started to experience worsening weakness. She started to notice dark stools over the last few days prior to admission. Patient also reported blurry vision. No nausea or vomiting. No fevers or chills. No chest pain or shortness of breath. Patient reported history of gastric cancer status post gastrectomy done at [facility]. She has been followed by [place] [facility] specialist. She reported no recent use of NSAIDs. She takes pantoprazole daily. She is not on antiplatelet or anticoagulation therapy. Patient reported no tobacco use, alcohol use, or illicit drug use. Medications were reviewed at the bedside. She reported no drug allergies. In the ED, patient was hypotensive 80s/50s. She was bradycardic in the 40s. Labs showed glucose level of 40. Creatinine was 1.7 which is increased from her baseline of 1.3. Her hemoglobin has significant drop from her baseline. EKG showed sinus bradycardia. Chest x-ray showed mild congestion. CT abdomen/pelvis showed mild rectal thickening. Patient received dextrose IV fluids, 1 amp of dextrose, and IV atropine. Her heart rate improved but her blood pressure continues to be critical for which she was started on vasopressors. She was admitted initially to the ICU for vasopressor support. Review of Systems Constitutional Comments: 12 point of system reviewed. All negative except as mentioned in the HPI Meds Home Medications and Allergies Home Medications ?Medication ?Instructions ?Recorded ?Confirmed ?Type carisoprodol 350 mg tablet 350 mg PO QIDPRN PRN PAIN 30 days 03/19/14 11/01/22 History ##0 escitalopram oxalate 20 mg tablet 20 mg PO QDAY 30 days ##0 03/19/14 11/01/22 History (Lexapro) gabapentin 300 mg capsule 300 mg PO TID #0 caps 03/19/14 11/01/22 History montelukast 10 mg tablet 10 mg PO HS #0 tabs 03/19/14 11/01/22 History (Singulair) verapamil 240 mg tablet,extended 240 mg PO HS ##0 03/19/14 11/01/22 History release (Calan SR) albuterol sulfate 90 mcg/actuation 90 mcg inhalation PRN PRN Wheezing 08/17/21 11/01/22 History aerosol inhaler aspirin 81 mg tablet,delayed 81 mg PO BID 08/17/21 11/01/22 History release biotin 10,000 mcg capsule 10,000 mcg PO QDAY 08/17/21 11/01/22 History bupropion HCl 150 mg tablet,12 hr 300 mg PO QDAY 08/17/21 11/01/22 History sustained-release cholecalciferol (vitamin D3) 50 50 mcg PO BID 08/17/21 11/01/22 History mcg (2,000 unit) capsule (Vitamin D3) clonidine HCl 0.1 mg tablet 0.1 mg PO QDAY 08/17/21 11/01/22 History cyanocobalamin (vitamin B-12) 100 100 mcg PO QDAY 08/17/21 11/01/22 History mcg tablet (Vitamin B-12) ferrous sulfate 325 mg (65 mg 325 mg PO QDAY 08/17/21 11/01/22 History iron) tablet (Iron (ferrous sulfate)) hydrocodone 5 mg-acetaminophen 325 5 - 325 tab PO BID 08/17/21 11/01/22 History mg tablet Held on 11/01/22. Instructions: Resume on 11/02/22. lisinopril 20 mg tablet 20 mg PO QDAY 08/17/21 11/01/22 History pantoprazole 40 mg tablet,delayed 40 mg PO QDAY 08/17/21 11/01/22 History release rosuvastatin 5 mg tablet 5 mg PO QDAY 08/17/21 11/01/22 History topiramate 50 mg tablet 50 mg PO TID 08/17/21 11/01/22 History verapamil 180 mg tablet,extended 180 mg PO QDAY 08/17/21 11/01/22 History release vitamin B complex (Complex B-100 1 tab PO QDAY 08/17/21 11/01/22 History tablet,extended release) Allergies Allergy/AdvReac Type Severity Reaction Status Date / Time Adhesives Allergy Mild Hives Uncoded 04/29/25 17:00 Exam Vital Signs Temp Pulse Resp BP Pulse Ox O2 Del Method 97.9 F 68 16 120/79 100 Room Air 04/29/25 19:47 04/29/25 20:00 04/29/25 20:00 04/29/25 20:00 04/29/25 20:00 04/29/25 16:35 Narrative General: Alert and oriented x3. In no acute distress. Eyes: Pale conjunctival. Pupils are equal and reactive to light bilaterally. HEENT: Atraumatic, normocephalic. No JVD noted. Mucous membranes are dry Cardiovascular: Normal S1 and S2. Normal rate and regular rhythm. No murmurs appreciated. No peripheral pitting edema noted. No JVD noted. Respiratory: No respiratory distress. Lungs are clear to auscultation bilaterally. No wheezing or crackles heard. Abdomen: Soft, nontender, nondistended. Skin: No rash. Pale Musculoskeletal: No gross injuries. Able to move all 4 extremities. Neuro: Alert and oriented x3. Sensation is intact throughout. Strength is symmetric. No focal neuro deficits. Psych: Normal affect and mood. Results - Hospitalist Labs Diagrams: 04/29/25 17:08 04/29/25 17:08 Labs: Short CBC 04/29/25 Range/Units 17:08 WBC 4.8 (3.6-11.0) Thou/mm3 Hgb 9.6 L (12.0-16.0) g/dL Hct 28.9 L (36.0-46.0) % Plt Count 155 (140-440) Thou/mm3 BMP 04/29/25 17:08 Sodium 143 Potassium 4.5 Chloride 114 H Carbon Dioxide 22.0 BUN 30 H Creatinine 1.7 H Glucose 40 L* Calcium 8.0 L Cardiac Enzymes 04/29/25 Range/Units 17:08 Troponin I < 0.002 (0.0-0.045) ng/mL Liver Function 04/29/25 Range/Units 17:08 Total Bilirubin 0.2 L (0.3-1.2) mg/dL AST 21 (0-34) U/L ALT 22 (10-49) U/L Alkaline Phosphatase 41 L (46-116) U/L Albumin 3.4 (3.4-4.8) gm/dL Urine 04/29/25 Range/Units 19:58 Urine Color Lt-Yellow (Lt Yel-Yel) Urine Clarity Clear (Clear/Hazy) Urine pH 6.5 (5.0-7.0) Ur Specific [place] 1.007 (1.001-1.035) Urine Protein Negative (Neg - Trace) Urine Glucose (UA) Negative (Negative) Assessment & Plan -Hospitalist Patient Synopsis 59-year-old female with history of hypertension, chronic pain, gastric cancer status post gastrectomy in [facility] [place], migraine headaches, and hyperlipidemia, who presented with a chief complaint of generalized weakness. She was found to have shock Cardiovascular Acute hypotension Likely in the setting of GI bleed on top of multiple hypertensive treatment and poor oral intake Requiring vasopressor support with Levophed Plan: Continue vasopressor support MAP goal is more than 65 Continue IV fluids Management of GI bleed as below Hold antihypertensive treatment Sinus bradycardia EKG did show sinus bradycardia Possibly in the setting of verapamil use which was increased recently to 200 mg daily versus donepezil use which was started recently. Improved after IV atropine Plan: Hold verapamil Hold donepezil Avoid beta-tiffanie use Consult cardiology if remains bradycardic Endocrine Hypoglycemia Glucose level was 40 at the time of presentation Improved with IV dextrose Likely in setting of poor oral intake Plan: Continue D10W Monitor fingersticks Avoid insulin and antihyperglycemic agents Renal AKIRA Likely prerenal in the setting of dehydration and GI bleed Plan: Continue IV fluids Monitor kidney function Avoid nephrotoxins Renally dose medications Heme/oncology Acute on chronic anemia In the setting of GI bleed Plan: Monitor H&H Transfuse if hemoglobin is less than 8 GI workup as above Essential hypertension Hold antihypertensive treatment in the setting of acute hypotension Neuro History of migraine headaches No recent episodes. Resume home medications. Avoid NSAIDs Cognitive impairment? She was recently started on donepezil 10 mg daily. Possibly due to memory issues versus early dementia. Will hold this medication in the setting of bradycardia. Outpatient follow-up with neurology/Cherry get Musculoskeletal Chronic pain Resume home medications CODE STATUS is full code DVT prophylaxis with SCDs in the setting of GI bleed Diet is clear liquid. N.p.o. after midnight for possible EGD Quality Measures Quality Measures none
[2025-04-29] MEDS: GABAPENTIN 100 MG CAPSULE 400 MG PO (22:05)
[2025-04-29] MEDS: DEXTROSE 10%-WATER 1000 ML 1,000 ML 75 ML IV (22:19)
[2025-04-29] MEDS: TOPIRAMATE 100 MG TABLET 150 MG PO (22:48)
[2025-04-29] MEDS: ATORVASTATIN CALCIUM 10 MG TABLET PO (22:48)
[2025-04-29] MEDS: HYDROmorphone INJ 2 MG/ML VIAL 0.5 MG IVP (23:50)
[2025-04-30] VITALS (115 sets, daily range): BP systolic 75–153; BP diastolic 42–84; PULSE 41–84; RESP 1–100; TEMP 36.6–37.3; O2SAT 88–100; BMI 21.6
[2025-04-30] MEDS: DEXTROSE 10%-WATER 1000 ML 1,000 ML 75 ML IV (02:48)
[2025-04-30] MEDS: GABAPENTIN 100 MG CAPSULE 400 MG PO (05:08)
[2025-04-30 05:26] LABS: Basophils # (Auto) 0.1 Thou/mm3 (0.0-0.2); Basophils % (Auto) 1 % (0-2.5); Eosinophils # (Auto) 0.2 Thou/mm3 (0.0-0.5); Eosinophils % (Auto) 3 % (0-10); Hematocrit 30.6 % (36.0-46.0); Hemoglobin 10.2 g/dL (12.0-16.0); Immature Granulocytes % (Auto) 0 % (0-0); Immature Granulocytes Auto 0.02 Thou/mm3 (0.00-0.00); Lymphocytes # (Auto) 1.8 Thou/mm3 (1.0-4.8); Lymphocytes % (Auto) 29 % (10-50); Mean Corpuscular HGB Conc 33.3 g/dl (31.0-37.0); Mean Corpuscular Hemoglobin 31.4 pg (25.0-35.0); Mean Corpuscular Volume 94 fL (80-100); Monocytes # (Auto) 0.4 Thou/mm3 (0.0-0.8); Monocytes % (Auto) 7 % (0-12); Neutrophils # (Auto) 3.7 Thou/mm3 (1.8-7.7); Neutrophils % (Auto) 59 % (37-80); Nucleated Red Blood Cell % 0 /100 WBC (0); Platelet Count 200 Thou/mm3 (140-440); RDW Standard Deviation 46.8 fL (36.4-46.3); Red Blood Count 3.25 Miln/mm3 (4.00-5.20); White Blood Count 6.3 Thou/mm3 (3.6-11.0)
[2025-04-30 05:48] LABS: Anion Gap 9 (7-16); BUN/Creatinine Ratio 15 Ratio (12-20); Blood Urea Nitrogen 21 mg/dL (9-23); Calcium 7.6 mg/dL (8.3-10.6); Carbon Dioxide 20.6 mMol/L (20.0-31.0); Chloride 114 mMol/L (98-107); Creatinine (Component) 1.4 mg/dL (0.6-1.3); Estimated Creatinine Clearance 38.5 mL/min (>60); Glucose 121 mg/dL (74-106); Magnesium 2.2 mg/dL (1.6-2.6); Osmolality,Calculated 290 (275-295); Potassium 4.5 mMol/L (3.4-5.1); Sodium 144 mMol/L (136-145); eGFR 43 See Note
--- NOTE | 2025-04-30 07:37 | EKG_ITS ---
[facility] Test Date: 2025-04-30 Pat Name: HERSON PROCTOR [facility] Gender: Female Professional Model: UNIQUE : 1965 Requested By: Leon Perry Order Number: [id number] Reading MD: Leon Perry Measurements Intervals [place] Rate: 46 P: 15 NC: 178 QRS: 44 QRSD: 81 T: 28 QT: 455 QTc: 399 Interpretive Statements SINUS BRADYCARDIA LOW QRS VOLTAGE IN PRECORDIAL LEADS Compared to ECG 04/29/2025 17:04:09 Low QRS voltage now present /store/S0/[id number]/[id number].pdf
[2025-04-30] MEDS: CALCIUM GLUC/NS 1000MG IVPB 1,000 MG/50 ML BAG 100 MG IV ×2 (08:10→08:39)
--- NOTE | 2025-04-30 08:26 | ESPR_ITS ---
<Statement entered by Elke Boyd MD - 04/30/25 17:59> TOTAL CC TIME: 65 MIN I saw and evaluated the patient. I reviewed the resident?s note and agree with findings and plan as documented in the resident?s note. Upon my evaluation, this patient had a high probability of imminent or life- threatening deterioration due to cardiogenic from verampamil toxicity, which required my direct attention, intervention, and personal management. This time is exclusive of time spent on procedures, which are documented separately if performed. poison control consulted - reviewed additional meds pt takes at home given polypharmacy could also be contributing calcium gluconate 2g iv push given improvement in BP AND HR through the day Appropriate response to straight leg raise with HR increased from 40 to 61 no indication for glucagon or lipid emulsion therapy per PC - agree did not start insulin gtt due to hypoglycemia on d10. on / off levophed. keep in icu bld clx ordered as well but no evid to support sepsis at this time Documentation for date of: 04/30/25 Subjective Subjective Interval history: 59-year-old female with history of hypertension, chronic pain, cervical cancer s/p hysterectomy,radiation and chemotherapy [1985,2002] in remission, status post total gastrectomy with reconstruction in [facility][2018], migraine headaches, and hyperlipidemia, who presented with a chief complaint of generalized weakness. She was in her usual state of health until about 1 week prior to admission. Patient started to experience worsening weakness. She started to notice dark stools over the last few days prior to admission. Patient also reported blurry vision. No nausea or vomiting. No fevers or chills. No chest pain or shortness of breath. Patient reported history of gastric cancer status post gastrectomy done at [facility]. She has been followed by [place] [facility] specialist. She reported no recent use of NSAIDs. She takes pantoprazole daily. She is not on antiplatelet or anticoagulation therapy. Patient reported no tobacco use, alcohol use, or illicit drug use. Medications were reviewed at the bedside. She reported no drug allergies. In the ED, patient was hypotensive 80s/50s. She was bradycardic in the 40s. Labs showed glucose level of 40. Creatinine was 1.7 which is increased from her baseline of 1.3. Her hemoglobin has significant drop from her baseline. EKG showed sinus bradycardia. Chest x-ray showed mild congestion. CT abdomen/pelvis showed mild rectal thickening. Patient received dextrose IV fluids, 1 amp of dextrose, and IV atropine. Her heart rate improved but her blood pressure continues to be critical for which she was started on vasopressors. She was admitted initially to the ICU for vasopressor support. 04/30/2025: Overnight no events. Patient complaining of headache and dizziness. Hb 10.2, BUN 21, CR improved to 1.4 from 1.7. Pending blood culture.Lactic acid, TSH ordered. RIJ central line placed for Levophed infusion. Cardiology consulted for bradycardia and GI for melena. Exam Vital Signs Temp Pulse Resp BP Pulse Ox O2 Del Method 98.4 F 54 L 17 117/71 97 Room Air 04/30/25 04:00 04/30/25 07:00 04/30/25 07:00 04/30/25 06:00 04/30/25 07:00 04/29/25 21:46 Narrative Exam Constitutional Alert, oriented x 3 and comfortable. Elderly female. HEENT Vision grossly intact. Patent nares. Trachea midline Respiratory Chest normal on inspection and clear auscultation bilaterally. RIJ catheter in situ. exit site clean Cardiovascular S1 and S2 audible, RRR. No murmurs carotid bruit. No gross JVD. Abdominal Soft and non tender to palpation in all quadrants. Healed lower abdomen surgical scar, surgical umbilicus. BS + Genitourinary No bladder tenderness, no flank pain. Normal to palpation Musculoskeletal Extremities tone within normal limits. No LE edema. Neurological CN II - XII grossly intact. Extremity motor and sensation grossly intact. Skin Warm, dry and intact. No apparent lesions. Psychiatric Patient has good affect, is cooperative Objective Labs 04/30/25 04:40 04/30/25 04:40 Labs: Laboratory Results - last 24 hr 04/29/25 04/29/25 04/30/25 17:08 19:58 04:40 WBC 4.8 6.3 RBC 3.02 L 3.25 L Hgb 9.6 L 10.2 L Hct 28.9 L 30.6 L MCV 96 94 MCH 31.8 31.4 MCHC 33.2 33.3 RDW Std Deviation 48.5 H 46.8 H Plt Count 155 200 D Neut % (Auto) 58 59 Lymph % (Auto) 28 29 [place] % (Auto) 9 7 Eos % (Auto) 4 3 Baso % (Auto) 1 1 Neut # (Auto) 2.8 3.7 Lymph # (Auto) 1.4 1.8 Walton # (Auto) 0.4 0.4 Eos # (Auto) 0.2 0.2 Baso # (Auto) 0.1 0.1 Immature Gran # (Auto) 0.01 H 0.02 H Absolute Nucleated RBC 0.00 0.00 Immature Gran % 0 0 Nucleated RBC % 0 0 PT 10.8 INR 1.0 APTT 23.2 Sodium 143 144 Potassium 4.5 4.5 Chloride 114 H 114 H Carbon Dioxide 22.0 20.6 Anion Gap 7 9 BUN 30 H 21 Creatinine 1.7 H 1.4 H Estim Creat Clear Calc 31.7 L 38.5 L eGFR 34 L 43 L BUN/Creatinine Ratio 18 15 Glucose 40 L* 121 H D Calculated Osmolality 288 290 Calcium 8.0 L 7.6 L Corrected Calcium 8.5 Magnesium 2.2 Total Bilirubin 0.2 L AST 21 ALT 22 Alkaline Phosphatase 41 L Troponin I < 0.002 B-Natriuretic Peptide 168 H Total Protein 5.1 L Albumin 3.4 Globulin 1.7 L Albumin/Globulin Ratio 2.0 Ur Collection Type Clean Catch Urine Color Lt-Yellow Urine Clarity Clear Urine pH 6.5 Ur Specific [place] 1.007 Urine Protein Negative Urine Glucose (UA) Negative Urine Ketones Negative Urine Blood Negative Urine Nitrite Negative Urine Bilirubin Negative Urine Urobilinogen (Auto) Negative Ur Leukocyte Esterase Negative Urine RBC 3 Urine WBC 2 Ur Squamous Epith Cells < 1 Urine Bacteria None Blood Type O Positive Antibody Screen NEGATIVE Blood Bank Wristband ID Yes Quality Measures Quality Measures none Assessment & Plan Assessment Current Active Medications: Generic Name Dose Route Start Last Admin Trade Name Freq PRN Reason Stop Dose Admin Albuterol 2.5 mg 04/29/25 20:51 Albuterol Rt 2.5 Mg/0.5 Ml Nebu INH 05/30/25 00:59 Q6HRRT PRN SHORTNESS OF BREATH OR WHEEZE Atorvastatin Calcium 10 mg 04/29/25 21:00 04/29/25 22:48 Atorvastatin Calcium 10 Mg Tablet PO 05/29/25 20:59 10 mg HS SULEMAN Administration Bupropion HCl 300 mg 04/30/25 09:00 Bupropion Hcl Xl 150 Mg Tabcr PO 05/30/25 08:59 QDAY SULEMAN Hydromorphone HCl 0.5 mg 04/29/25 20:47 04/29/25 23:50 Hydromorphone Inj 2 Mg/Ml Vial IVP 05/04/25 20:46 0.5 mg Q4H PRN Administration PAIN 7-10 Norepinephrine/Dextrose 8 mg in 250 mls @ 5.528 mls/hr 04/29/25 17:33 04/30/25 08:11 Levophed In D5w 8mg/250ml IV 05/29/25 17:32 0.03 mcg/kg/min .Q24H PRN 3.317 mls/hr PER PROTOCOL Titration Protocol 0.05 MCG/KG/MIN Dextrose 1,000 mls @ 75 mls/hr 04/30/25 02:39 04/30/25 02:48 D10w 1000 Ml IV 04/30/25 15:58 75 mls/hr .[id number] SULEMAN Administration Calcium Gluconate/Sodium Chloride 1,000 mg in 50 mls @ 100 mls/hr 04/30/25 08:15 04/30/25 08:10 Calcium Gluc/Ns 1000mg Ivpb IV 04/30/25 09:14 100 mls/hr Q30M SULEMAN Administration Oxycodone/Acetaminophen 1 tab 04/29/25 20:47 Oxycodone/Apap 5/325 Tablet PO 05/04/25 20:46 Q6H PRN PAIN SCALE 4-6 (Moderate Pantoprazole Sodium 40 mg 04/29/25 21:00 04/29/25 22:06 Pantoprazole Inj 40 Mg Vial IVP 05/29/25 20:59 40 mg Q12HR SULEMAN Administration Pharmacy Consult 1 each 04/30/25 07:47 Pharmacy To Consult Patient XX 05/30/25 07:46 PRN PRN CONSULT Fluticasone/Salmeterol 1 puff 04/29/25 21:00 04/30/25 06:29 Fluticasone/Salmeterol 250/50 14 Dose Inh INH 05/29/25 20:59 Not Given BIDRT SULEMAN Sodium Chloride 3 ml 04/29/25 20:51 Sodium Chloride Rt Perri 0.9% 3 Ml Nebu INH 05/29/25 20:50 PRN PRN SOLN Topiramate 150 mg 04/29/25 21:00 04/29/25 22:48 Topiramate 100 Mg Tablet PO 05/29/25 20:59 150 mg BID SULEMAN Administration Plan 59-year-old female with history of hypertension, chronic pain, gastric cancer status post gastrectomy in [facility], migraine headaches, and hyperlipidemia, who presented with a chief complaint of generalized weakness. She was found to have shock Cardiovascular Distributive shock DDx: Likely secondary to verapamil toxicity, low suspicion for septic shock Dx: Map less than 65 before starting Levophed infusion Rx: Continue Levophed infusion and titrate as necessary. Calcium gluconate 2 g IV x 1 given. Poison control consulted regarding treatment plan, agreed with calcium gluconate. Cardiology, Dr. Clark consulted. RRx: Continue to titrate Levophed as necessary Sinus bradycardia EKG did show sinus bradycardia Possibly in the setting of verapamil use which was increased recently to 200 mg daily versus donepezil use which was started recently. Improved after IV atropine Rx: Completely discontinue verapamil on discharge. Restart lowest dose LIANE inhibitor once shock resolves as per cardiology recommendations Endocrine Hypoglycemia Blood glucose fluctuates between 70s/80s Rx: Discontinue D10 infusion. Started on regular diet Renal AKIRA Likely prerenal in the setting of dehydration and GI bleed Rx: Encourage oral intake GI Gastric cancer s/p gastrectomy with reconstruction Melena Rx: GI, Dr. Aguilar consulted. Appreciate recommendations Heme/oncology Acute on chronic anemia In the setting of GI bleed Rx: Monitor CBC, GI, Dr. Aguilar consulted. Neuro History of migraine headaches No recent episodes. Rx: Tylenol 650 Mg p.o. every 4 hourly as Cognitive impairment? She was recently started on donepezil 10 mg daily. Possibly due to memory issues versus early dementia. Will hold this medication in the setting of bradycardia. Outpatient follow-up with neurology/Cherry get Musculoskeletal Chronic pain Rx: Oxycodone and hydromorphone as needed ICU Health maintenance: Dispo: Admit to ICU for distributive shock requiring vasopressors Diet: Regular diet DVT ppx: SCDs GI ppx: No IV lines: 2 pIV Central line: RIJ catheter Arterial line: No Hale: No Code status: FULL CODE Plan of care discussed with Attending Dr. Oliver Perry MD PGY 1 Disclaimer: This note was dictated by speech recognition. Minor errors in intensive care nurse may be present due to voice recognition software.
[2025-04-30 08:32] LABS: Thyroid Stimulating Hormone 6.37 uIU/mL (0.55-4.78)
[2025-04-30 08:54] LABS: Lactate (Lactic Acid) 1.6 mMol/L (0.4-2.0)
[2025-04-30] MEDS: PANTOPRAZOLE INJ 40 MG VIAL IVP ×2 (08:56→21:03)
[2025-04-30] MEDS: TOPIRAMATE 100 MG TABLET 150 MG PO ×2 (09:14→21:04)
[2025-04-30] MEDS: BuPROPion HCL XL 150 MG TABCR 300 MG PO (09:51)
[2025-04-30] MEDS: RINGERS LACTATED 1000 ML 500 ML 999 ML IV (11:08)
--- NOTE | 2025-04-30 13:57 | XR_ITS ---
Examination: AP chest single view TECHNIQUE: AP portable semiupright chest single view Date and time: April 30, 2025 1412 hours Comparison April 29, 2025 INDICATIONS: Post central line placement LUNGS: Right internal jugular central line tip SVC satisfactory position, no pneumothorax Normal heart size IMPRESSION: Right internal jugular central line tip satisfactory position
--- NOTE | 2025-04-30 13:57 | ESOP_ITS ---
<Statement entered by Elke Boyd MD - 05/01/25 19:53> I was present for the critical and amin portions of the procedure and was immediately available to provide assistance. Procedures Procedure Date / Time 04/30/25 1997 Procedure Narrative Procedure Narrative: PROCEDURE: Right IJ vascular catheter INDICATION: Distributive shock requiring Norepinephrine infusion PROCEDURE MANAGER FIELD SERVICES : Dr Perry ATTENDING PHYSICIAN : Dr Boyd CONSENT : Informed consent was obtained from patient, with discussion regarding the procedure, or treatment. I explained the following to the designee: a. Nature of the procedure or treatment and who will perform the procedure or treatment b. Necessity for procedure and the possible benefits. c. Risks and complications (most common and serious) d. Alternative treatments and the risks, benefits and side effects of each (including no treatment). e. Likelihood of the patient achieving his/her goals without this procedure and surgery treatment f. Problems that might occur during the recuperation g. Conflicts of interest, if any PROCEDURE SUMMARY: The Central Line Venous Catheter Insertion Practices form was completed. Starting with the first handwash prior to starting sterile technique. A time out was performed . My hands were washed immediately prior to the procedure. I wore a surgical cap, mask with protective eyewear, full gown and sterile gloves throughout the procedure. The patient was placed in Trendelenburg position. RIGHT neck region was prepped using chlorhexidine scrub and draped in sterile fashion using a full drape and sterile probe cover and sterile gel employed. The medial and lateral heads of the sternocliedomastoid muscle were identified as was the carotid pulse. The Right Internal Jugular vein was identified using the ultrasound. Anesthesia was achieved over the vein using 1% lidocaine. Using real-time out of plane guidance, the introducer needle was inserted into the Right Internal Jugular Vein by ultrasound. A small incision was made at the skin surface with a scalpel and the introducer needle was exchanged for a dilator over the guidewire. After appropriate dilation was obtained, the dilator was exchanged over the wire for a central venous catheter. The wire was removed and the catheter was sutured in place at 0.2 - 0.3 cm. A sterile sobraview shield was placed over the catheter at the insertion site. The patient tolerated the procedure without any hemodynamic compromise. At time of procedure completion, all ports aspirated and flushed properly. Estimated blood loss is ~ 2 ml. Post-procedure chest x-ray confirmed appropriate placement Under the supervision of my attending Dr Oliver Perry MD (PGY1)
[2025-04-30 16:16] LABS: OBS Card Expiration Date 2026-09; OBS Card Lot # 23001; OBS Developer Lot # 23002; OBS QC OK? Yes; Occult Blood, Stool Negative (Negative)
--- NOTE | 2025-04-30 16:22 | PC.SS ---
CARGO TANK MECHANIC conducted bedside contact with the patient conduct initial assessment and to discuss discharge planning.? Patient confirmed demographic information.? Patient resides at home with spouse, Yasir Kwon; .? Patient is retired.? Patient does not utilize DME to assist with ambulation.? Patient does not utilize home oxygen.? Patient reports that PCP ordered home oxygen for the patient but DME has yet to be provided.? Patient currently on room air.? Patient requires assistance with the completion of ADL?s.? Patient is aligned with [employer].? Patient?s surrogate medical decision maker is spouse, Yasir Kwon.? Patient?s PCP is Dr. Jose.? Prabhakar Lewis; is the patient?s Yard Crane Operator.? Patient utilizes [facility] for medication services.? Plan is for the patient to return home at the time of discharge.? If home recommended no preferred agency identified.? If home oxygen is recommended no preferred vendor identified.? Family will provide transportation on behalf of the patient. ?No further discharge needs identified by the patient.? No further intervention required at this time, geriatric social work professor will be available to address any further concerns.? Next of Kin: Yasir Kwon D/C Plan: Home
[2025-04-30] MEDS: ALBUTEROL/IPRATROPIUM (Duoneb) RT SOL 3 ML NEBU INH (19:07)
[2025-04-30] MEDS: FLUTICASONE/SALMETEROL 250/50 14 DOSE INH 1 PUFF INH (19:21)
--- NOTE | 2025-04-30 19:26 | PD.IMCONS ---
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 and being followed by GI physician and [facility] Her glucose was 40 in the ER and the blood pressure in the 50s to 80s and the creatinine of 1.7 Currently she is on Levophed in the ICU alert and oriented CT scan of the abdomen and pelvis without contrast showed retrocardiac gastric hernia absent gallbladder rectal wall thickening cc:: cc: Sylvester Vargas MD Review of Systems Review of Systems Systems Reviewed: All systems reviewed, normal except as documented Past Medical History Surgical History OTHER SURGICAL HX: As in the history of present illness Meds Home Medications and Allergies Home Medications ?Medication ?Instructions ?Recorded ?Confirmed ?Type carisoprodol 350 mg tablet 350 mg PO QIDPRN PRN PAIN 30 days 03/19/14 04/30/25 History ##0 escitalopram oxalate 20 mg tablet 20 mg PO QDAY 30 days ##0 03/19/14 04/30/25 History (Lexapro) gabapentin 300 mg capsule 300 mg PO TID #0 caps 03/19/14 04/30/25 History montelukast 10 mg tablet 10 mg PO HS #0 tabs 03/19/14 04/30/25 History (Singulair) verapamil 240 mg tablet,extended 240 mg PO HS ##0 03/19/14 04/30/25 History release (Calan SR) albuterol sulfate 90 mcg/actuation 90 mcg inhalation PRN PRN Wheezing 08/17/21 04/30/25 History aerosol inhaler aspirin 81 mg tablet,delayed 81 mg PO BID 08/17/21 04/30/25 History release biotin 10,000 mcg capsule 10,000 mcg PO QDAY 08/17/21 04/30/25 History bupropion HCl 150 mg tablet,12 hr 300 mg PO QDAY 08/17/21 04/30/25 History sustained-release cholecalciferol (vitamin D3) 50 50 mcg PO BID 08/17/21 04/30/25 History mcg (2,000 unit) capsule (Vitamin D3) clonidine HCl 0.1 mg tablet 0.1 mg PO QDAY 08/17/21 04/30/25 History cyanocobalamin (vitamin B-12) 100 100 mcg PO QDAY 08/17/21 04/30/25 History mcg tablet (Vitamin B-12) ferrous sulfate 325 mg (65 mg 325 mg PO QDAY 08/17/21 04/30/25 History iron) tablet (Iron (ferrous sulfate)) hydrocodone 5 mg-acetaminophen 325 5 - 325 tab PO BID 08/17/21 04/30/25 History mg tablet lisinopril 20 mg tablet 20 mg PO QDAY 08/17/21 04/30/25 History Held on 04/30/25. Instructions: Pt. lorelei says on hold pantoprazole 40 mg tablet,delayed 40 mg PO QDAY 08/17/21 04/30/25 History release rosuvastatin 5 mg tablet 5 mg PO QDAY 08/17/21 04/30/25 History topiramate 50 mg tablet 50 mg PO TID 08/17/21 04/30/25 History verapamil 180 mg tablet,extended 180 mg PO QDAY 08/17/21 04/30/25 History release vitamin B complex (Complex B-100 1 tab PO QDAY 08/17/21 04/30/25 History tablet,extended release) Allergies Allergy/AdvReac Type Severity Reaction Status Date / Time Adhesives Allergy Mild Hives Uncoded 04/29/25 17:00 Exam Vital Signs Temp Pulse Resp BP Pulse Ox O2 Del Method 99.0 F 68 16 93/61 100 Room Air 04/30/25 16:15 04/30/25 19:11 04/30/25 19:11 04/30/25 18:00 04/30/25 19:11 04/30/25 16:15 Constitutional Comments: Alert oriented Routine Respiratory Exam Comments: Normal to auscultation Routine Abdominal Exam Comments: Soft nontender Results Labs 04/30/25 04:40 04/30/25 04:40 Labs: Short CBC 04/30/25 Range/Units 04:40 WBC 6.3 (3.6-11.0) Thou/mm3 Hgb 10.2 L (12.0-16.0) g/dL Hct 30.6 L (36.0-46.0) % Plt Count 200 D (140-440) Thou/mm3 BMP 04/30/25 04:40 Sodium 144 Potassium 4.5 Chloride 114 H Carbon Dioxide 20.6 BUN 21 Creatinine 1.4 H Glucose 121 H D Calcium 7.6 L Urine 04/29/25 Range/Units 19:58 Urine Color Lt-Yellow (Lt Yel-Yel) Urine Clarity Clear (Clear/Hazy) Urine pH 6.5 (5.0-7.0) Ur Specific [place] 1.007 (1.001-1.035) Urine Protein Negative (Neg - Trace) Urine Glucose (UA) Negative (Negative) Assessment and Plan Additional Assessment & Plan Additional Plan: # Melena. 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 in the morning and do the endoscopy tomorrow evening Thank you very much for the opportunity to participate in the care of this patient
--- NOTE | 2025-04-30 20:50 | ECHO_ITS ---
Transthoracic Echo Report Ht (in): 65 Wt (lb): 130 Exam Location: Echo Lab Status: Inpatient Bus Aide: Jaz Smith Indications: Procedure Performed: BP: 117 / 71 HR: 54 Technical Quality: Adequate MEASUREMENTS (Male / Female) Normal Values 2D ECHO LV Diastolic Diameter PLAX 4.4 cm 4.2 - 5.9 / 3.9 - 5.3 cm LV Systolic Diameter PLAX 3.2 cm IVS Diastolic Thickness 0.7 cm 0.6 - 1.0 / 0.6 - 0.9 cm LVPW Diastolic Thickness 0.6 cm 0.6 - 1.0 / 0.6 - 0.9 cm LV Relative Wall Thickness 0.3 LVOT Diameter 2.1 cm LA Volume Index 55.7 cm?/m? 16 - 28 cm?/m? Ascending Aorta Diameter 3.6 cm DOPPLER AV Peak Velocity 171.0 cm/s AV Peak Gradient 11.7 mmHg AI Peak Velocity 322.0 cm/s AI Peak Gradient 41.5 mmHg AI Pressure Half Time 580.0 ms LVOT Peak Velocity 109.0 cm/s LVOT Peak Gradient 4.8 mmHg AV Area Cont Eq pk 2.2 cm? MV Area PHT 2.9 cm? Mitral E Point Velocity 125.0 cm/s Mitral A Point Velocity 117.0 cm/s Mitral E to A Ratio 1.1 LV E' Lateral Velocity 10.7 cm/s Mitral E to LV E' Lateral Ratio 11.7 LV E' Septal Velocity 9.4 cm/s Mitral E to LV E' Septal Ratio 13.4 TR Peak Velocity 192.0 cm/s TR Peak Gradient 14.7 mmHg PV Peak Velocity 102.0 cm/s PV Peak Gradient 4.2 mmHg FINDINGS Left Ventricle Normal left ventricular size, wall thickness, systolic function with no obvious regional wall motion abnormalities. Normal left ventricular diastolic filling pattern for age. The ejection fraction is visually estimated at 65%. Right Ventricle The right ventricle is normal in size and systolic function. The estimated right ventricular systolic pressure, 20 mmHg. Left Atrium The left atrium is mildly dilated. . Right Atrium The right atrium is moderately dilated. Atrial Septum The interatrial septum appears normal with no evidence of a shunt. Aorta The aorta is normal by two-dimensional, color flow and Doppler interrogation. Mitral Valve The mitral valve is normal by two-dimensional, color flow and Doppler interrogation. There is mild mitral regurgitation. Aortic Valve The aortic valve is trileaflet and normal by two-dimensional, color flow and Doppler interrogation. There is mild aortic regurgitaion. Tricuspid Valve The tricuspid valve is normal by two-dimensional, color flow and Doppler interrogation. There is mild tricuspid regurgitation. Pulmonic Valve The pulmonic valve is not well visualized. There is trace pulmonic regurgitation. Vessels The pulmonary artery appears normal. The inferior vena cava pulmonary and hepatic veins are not visualized. Pericardium The pericardium is normal by two-dimensional imaging. There is no significant pericardial effusion. CONCLUSIONS Indications: Shock The transthoracic study is normal by two-dimensional, color flow imaging and Doppler interrogation. Normal left ventricular size and function. Approximate ejection fraction is 65%. No wall motion abnormalities noted. Trace mitral and trace tricuspid regurgitation noted. Annabella Bird (Electronically Signed) Final Date: 30 April 2025 23:59
[2025-04-30] MEDS: ATORVASTATIN CALCIUM 10 MG TABLET PO (21:04)
[2025-04-30] MEDS: oxyCODONE/APAP 5/325 TABLET 1 TAB PO (22:10)
[2025-05-01] VITALS (64 sets, daily range): BP systolic 61–129; BP diastolic 33–72; PULSE 55–93; RESP 0–100; TEMP 36.6–37.3; O2SAT 92–100
[2025-05-01] MEDS: RINGERS LACTATED 500 ML 500 ML 150 ML IV (00:59)
[2025-05-01] MEDS: SODIUM CHLORIDE RT SOL 0.9% 3 ML NEBU INH (03:37)
[2025-05-01 06:01] LABS: Anion Gap 8 (7-16); BUN/Creatinine Ratio 15 Ratio (12-20); Basophils % (Auto) 0 % (0-2.5); Blood Urea Nitrogen 16 mg/dL (9-23); Carbon Dioxide 20.7 mMol/L (20.0-31.0); Chloride 114 mMol/L (98-107); Creatinine (Component) 1.1 mg/dL (0.6-1.3); Eosinophils % (Auto) 1 % (0-10); Estimated Creatinine Clearance 48.9 mL/min (>60); Glucose 89 mg/dL (74-106); Hematocrit 29.9 % (36.0-46.0); Hemoglobin 9.7 g/dL (12.0-16.0); Immature Granulocytes % (Auto) 0 % (0-0); Immature Granulocytes Auto 0.01 Thou/mm3 (0.00-0.00); Lymphocytes # (Auto) 1.1 Thou/mm3 (1.0-4.8); Lymphocytes % (Auto) 33 % (10-50); Mean Corpuscular HGB Conc 32.4 g/dl (31.0-37.0); Mean Corpuscular Hemoglobin 31.3 pg (25.0-35.0); Mean Corpuscular Volume 97 fL (80-100); Monocytes # (Auto) 0.1 Thou/mm3 (0.0-0.8); Monocytes % (Auto) 4 % (0-12); Neutrophils % (Auto) 61 % (37-80); Nucleated Red Blood Cell % 0 /100 WBC (0); Osmolality,Calculated 285 (275-295); Platelet Count 141 Thou/mm3 (140-440); Potassium 4.2 mMol/L (3.4-5.1); RDW Standard Deviation 47.8 fL (36.4-46.3); Sodium 143 mMol/L (136-145); White Blood Count 3.3 Thou/mm3 (3.6-11.0); eGFR 58 See Note
[2025-05-01] MEDS: FLUTICASONE/SALMETEROL 250/50 14 DOSE INH 1 PUFF INH ×2 (06:44→19:37)
[2025-05-01] MEDS: ALBUTEROL/IPRATROPIUM (Duoneb) RT SOL 3 ML NEBU INH ×2 (06:44→19:37)
[2025-05-01] MEDS: oxyCODONE/APAP 5/325 TABLET 1 TAB PO ×2 (07:16→17:51)
--- NOTE | 2025-05-01 07:48 | ESCONSULT_ITS ---
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 REASON FOR CONSULTATION: Evaluation of hypotension, bradycardia, drug overdose, polypharmacy for hypertension. HISTORY OF PRESENT ILLNESS: The patient is a 59-year-old lady, apparently history of hypertension for many years who has had a history of taking multiple medications, recently taking verapamil and multiple other medications for blood pressure management by primary care physician. She might have taken an extra dose of verapamil 240 mg, but came to the hospital with severe weakness and dizziness. She was found to have a heart rate of 50, blood pressure 73/40 on admission. She was given IV fluids and Glucagon. Levophed drip was started, low-dose Levophed, keeping the blood pressure controlled well at 120 systolic. She did not have any chest pain or shortness of breath. No cardiac complaints. No syncopal episodes. MEDICATIONS AT HOME: 1. Aspirin daily. 2. Multiple vitamins. 3. Soma. 4. Vitamin D3. 5. Clonidine 0.1 mg daily. 6. Verapamil 240 mg daily. 7. Recently given gabapentin 300 mg t.i.d. 8. Hydrocodone for pain. 9. Lisinopril 20 mg daily. 10. Rosuvastatin 5 mg daily. 11. Topiramate. PAST MEDICAL HISTORY: Hypertension labile, history of stroke, anxiety, migraines, hypercholesterolemia. PHYSICAL EXAMINATION: GENERAL: A well-nourished, thin built female, alert, awake, in no acute distress. Vital Signs: Blood pressure is 130/70 on IV norepinephrine, heart rate is 70, respiratory rate 16, and temperature normal. HEENT: Head is atraumatic and normocephalic. Eyes normal. ENT normal. NECK: Supple. No JVD. Carotid pulses felt with no bruits. No bruit. CHEST: Symmetrical. Decreased breath sounds. No rales or rhonchi. HEART: S1 and S2 regular. No gallops. ABDOMEN: Thin and soft, benign. Normal male. EXTREMITIES: No edema. /Rectal: Not performed. Neurologic: Normal. LABORATORY DATA: Hemoglobin and hematocrit 9.6 and 28 yesterday and today 10.2/30. Platelet count 200,000. Chemistry panel showed that glucose was low earlier, but now is normal. Creatinine 1.7 yesterday, down to 1.4, and troponins have been negative. IMAGING: EKG showed evidence of sinus rhythm, T inversion in V2, low voltage QRS. IMPRESSION/ASSESSMENT: 1. Hypotension, possibly secondary to drug induced, verapamil and multiple drugs, and bradycardia drug induced. 2. Hypercholesterolemia. RECOMMENDATIONS: I do not think the patient requires any workup at this time. Continue vasopressors, norepinephrine, and wean off carefully and add midodrine if necessary. The patient may not require this many blood pressure medications. It needs to be readdressed and reevaluated. Start back on low dose LIANE inhibitors initially and monitor for blood pressure. Do not start verapamil again. The patient may have labile hypertension, secondary causes can be investigated later on. We would like to thank for referring this patient for cardiovascular evaluation. We will be glad to follow the patient with you. DT: 23:32:51 TT: 00:35:00 Ref: [id number] - TID: [id number] MTDD
[2025-05-01 07:52] LABS: Iron 48 mcg/dL (50-170); Percent Iron Saturation 22 % (20-55); Total Iron Binding Capacity 214 mcg/dL (250-425); Unsaturated Iron Binding 166 (225-295)
[2025-05-01] MEDS: CALCIUM CARBONATE 600 MG TABLET PO (08:33)
[2025-05-01] MEDS: RINGERS LACTATED 1000 ML 1,000 ML 999 ML IV (08:34)
[2025-05-01] MEDS: BuPROPion HCL XL 150 MG TABCR 300 MG PO (08:34)
[2025-05-01] MEDS: PANTOPRAZOLE INJ 40 MG VIAL IVP (08:34)
[2025-05-01] MEDS: TOPIRAMATE 100 MG TABLET 150 MG PO ×2 (08:35→20:07)
[2025-05-01 10:03] LABS: Free T4 (Free Thyroxine) 0.83 ng/dL (0.89-1.76)
[2025-05-01] MEDS: LEVOTHYROXINE SODIUM 25 MCG TABLET 50 MCG PO (10:04)
[2025-05-01] MEDS: CALCIUM GLUC/NS 1000MG IVPB 1,000 MG/50 ML BAG 50 MG IV ×2 (10:04→10:50)
[2025-05-01] MEDS: HYDROCORTISONE SOD SUCC INJ 100 MG VIAL IV (10:05)
--- NOTE | 2025-05-01 10:09 | ESPR_ITS ---
<Statement entered by Elke Boyd MD - 05/01/25 20:14> TOTAL CC TIME: 45 MIN I saw and evaluated the patient. I reviewed the resident?s note and agree with findings and plan as documented in the resident?s note. Upon my evaluation, this patient had a high probability of imminent or life- threatening deterioration due to shock 2/2 medications, which required my direct attention, intervention, and personal management. This time is exclusive of time spent on procedures, which are documented separately if performed. was off levophed but then back on it still no evid to support infx etiology adrenal insufficiency is on the ddx - we have obtained random cortisol and started hydrocortisone she needs f/u on the random cortisol and if not c/w adrenal insuffieicy - the steroids shold be RAPIDLY tapered TFTs c/f hypothyroidism - therefore, synthroid started remove CVC when confirm no pressors required >=24 hrs Documentation for date of: 05/01/25 Subjective Subjective Interval history: Ms Kwon is a 59-year-old female with history of hypertension, chronic pain, cervical cancer s/p hysterectomy,radiation and chemotherapy [1985,2002] in remission, status post total gastrectomy with reconstruction in [facility][2018], migraine headaches, and hyperlipidemia, who presented with a chief complaint of generalized weakness. She was in her usual state of health until about 1 week prior to admission. Patient started to experience worsening weakness. She started to notice dark stools over the last few days prior to admission. Patient also reported blurry vision. No nausea or vomiting. No fevers or chills. No chest pain or shortness of breath. Patient reported history of gastric cancer status post gastrectomy done at [facility]. She has been followed by [place] [facility] specialist. She reported no recent use of NSAIDs. She takes pantoprazole daily. She is not on antiplatelet or anticoagulation therapy. Patient reported no tobacco use, alcohol use, or illicit drug use. Medications were reviewed at the bedside. She reported no drug allergies. In the ED, patient was hypotensive 80s/50s. She was bradycardic in the 40s. Labs showed glucose level of 40. Creatinine was 1.7 which is increased from her baseline of 1.3. Her hemoglobin has significant drop from her baseline. EKG showed sinus bradycardia. Chest x-ray showed mild congestion. CT abdomen/pelvis showed mild rectal thickening. Patient received dextrose IV fluids, 1 amp of dextrose, and IV atropine. Her heart rate improved but her blood pressure continues to be critical for which she was started on vasopressors. She was admitted initially to the ICU for pressor support in the setting of shock. 04/30/2025: Overnight no events. Patient complaining of headache and dizziness. Hb 10.2, BUN 21, CR improved to 1.4 from 1.7. Pending blood culture.Lactic acid, TSH ordered. RIJ central line placed for Levophed infusion. Cardiology consulted for bradycardia and GI consulted for melena. 05/01/2025: Patient was seen and examined at bedside this AM. Patient tolerating diet, adequate urine output and mentation is at baseline. Levophed was turned off overnight, MAP trending 70s. Patient denies any complaints at this time. NiCOM showed responsiveness, gave 1L fluid bolus as MAP dropped to 58-60 again. Will add Midodrine 5mg as needed for optimization. Patient may also have concomitant hypthyroidism, Levothyroxine 50mcg ordered as it may be a confounding factor in her hypotention. Unclear etiology for shock, likely Verapamil, but may have other confounding factors. Patient also agrees has she has been taking CCB for BP control for a few years. Exam Vital Signs Temp Pulse Resp BP Pulse Ox O2 Del Method 99.1 F 85 18 75/52 L 96 Room Air 05/01/25 08:00 05/01/25 09:00 05/01/25 09:00 05/01/25 09:00 05/01/25 09:00 05/01/25 08:00 Narrative Exam Constitutional Alert, oriented x 3 and comfortable. HEENT Vision grossly intact. Patent nares. Trachea midline. RIJ catheter in situ. exit site clean Respiratory Chest normal on inspection, diffuse wheezes on auscultation. Cardiovascular S1 and S2 audible, RRR. No murmurs carotid bruit. No gross JVD. Abdominal Soft and non tender to palpation in all quadrants. Healed lower abdomen surgical scar, surgical umbilicus. BS + Genitourinary No bladder tenderness, no flank pain. Normal to palpation Musculoskeletal Extremities tone within normal limits. No LE edema. Neurological CN II - XII grossly intact. Extremity motor and sensation grossly intact. Skin Warm, dry and intact. Multiple piercings- facial Psychiatric Patient has good affect, is cooperative Objective Labs 05/01/25 04:50 05/01/25 04:50 Labs: Laboratory Results - last 24 hr 04/30/25 05/01/25 14:00 04:50 WBC 3.3 L D RBC 3.10 L Hgb 9.7 L Hct 29.9 L MCV 97 MCH 31.3 MCHC 32.4 RDW Std Deviation 47.8 H Plt Count 141 D Neut % (Auto) 61 Lymph % (Auto) 33 Bucks % (Auto) 4 Eos % (Auto) 1 Baso % (Auto) 0 Neut # (Auto) 2.0 Lymph # (Auto) 1.1 Bucks # (Auto) 0.1 Eos # (Auto) 0.0 Baso # (Auto) 0.0 Immature Gran # (Auto) 0.01 H Absolute Nucleated RBC 0.00 Immature Gran % 0 Nucleated RBC % 0 Sodium 143 Potassium 4.2 Chloride 114 H Carbon Dioxide 20.7 Anion Gap 8 BUN 16 Creatinine 1.1 Estim Creat Clear Calc 48.9 L eGFR 58 L BUN/Creatinine Ratio 15 Glucose 89 Calculated Osmolality 285 Calcium 8.0 L Iron 48 L TIBC 214 L Iron Saturation 22 Unsat Iron Binding 166 L Free T4 0.83 L Stool Occult Blood Negative Quality Measures Quality Measures none Assessment & Plan Assessment Current Active Medications: Generic Name Dose Route Start Last Admin Trade Name Freq PRN Reason Stop Dose Admin Acetaminophen 650 mg 04/30/25 08:44 Acetaminophen 325 Mg Tablet PO 05/30/25 08:43 Q4HR PRN Pain 1-3 or Temp >100.3 Albuterol 2.5 mg 05/01/25 03:37 Albuterol Rt 2.5 Mg/0.5 Ml Nebu INH 05/31/25 06:59 Q6HRRT PRN SHORTNESS OF BREATH OR WHEEZE Albuterol/Ipratropium 3 ml 04/30/25 11:00 05/01/25 06:44 Albuterol/Ipratropium (Duoneb) Rt Perri 3 Ml Nebu INH 05/30/25 10:59 3 ml BID SULEMAN Administration Atorvastatin Calcium 10 mg 04/29/25 21:00 04/30/25 21:04 Atorvastatin Calcium 10 Mg Tablet PO 05/29/25 20:59 10 mg HS SULEMAN Administration Bupropion HCl 300 mg 04/30/25 09:00 05/01/25 08:34 Bupropion Hcl Xl 150 Mg Tabcr PO 05/30/25 08:59 300 mg QDAY SULEMAN Administration Hydrocortisone 50 mg 05/01/25 12:30 Hydrocortisone 5 Mg Tablet PO 05/02/25 05:00 Q6H SULEMAN Hydrocortisone 50 mg 05/02/25 09:00 Hydrocortisone 5 Mg Tablet PO 05/08/25 21:00 BID SULEMAN Norepinephrine/Dextrose 8 mg in 250 mls @ 5.528 mls/hr 04/29/25 17:33 04/30/25 17:00 Levophed In D5w 8mg/250ml IV 05/29/25 17:32 0 mcg/kg/min .Q24H PRN 0 mls/hr PER PROTOCOL Titration Protocol 0.05 MCG/KG/MIN Calcium Gluconate/Sodium Chloride 1,000 mg in 50 mls @ 50 mls/hr 05/01/25 09:45 05/01/25 10:04 Calcium Gluc/Ns 1000mg Ivpb IV 05/01/25 11:44 50 mls/hr Q1H SULEMAN Administration Levothyroxine Sodium 50 mcg 05/02/25 06:00 Levothyroxine Sodium 25 Mcg Tablet PO 06/01/25 05:59 ACBR SULEMAN Oxycodone/Acetaminophen 1 tab 04/29/25 20:47 05/01/25 07:16 Oxycodone/Apap 5/325 Tablet PO 05/04/25 20:46 1 tab Q6H PRN Administration PAIN SCALE 4-6 (Moderate Pantoprazole Sodium 40 mg 04/29/25 21:00 05/01/25 08:34 Pantoprazole Inj 40 Mg Vial IVP 05/29/25 20:59 40 mg Q12HR SULEMAN Administration Fluticasone/Salmeterol 1 puff 04/29/25 21:00 05/01/25 06:44 Fluticasone/Salmeterol 250/50 14 Dose Inh INH 05/29/25 20:59 1 puff BIDRT SULEMAN Administration Sodium Chloride 3 ml 04/29/25 20:51 05/01/25 03:37 Sodium Chloride Rt Perri 0.9% 3 Ml Nebu INH 05/29/25 20:50 3 ml PRN PRN Administration SOLN Topiramate 150 mg 04/29/25 21:00 05/01/25 08:35 Topiramate 100 Mg Tablet PO 05/29/25 20:59 150 mg BID SULEMAN Administration Plan Ms Kwon is a 59-year-old female with history of hypertension, chronic pain, gastric cancer status post gastrectomy in [facility], migraine headaches, and hyperlipidemia, who presented with a chief complaint of generalized weakness. She was found to have shock Neuro No active problems. History of migraine headaches + Chronic pain Rx: PRN Percocet Cardiovascular Distributive shock Sinus Bradycardia, asymptomatic - resolved DDx: Likely secondary to verapamil toxicity, possibly confounded by hypothyroidism, low suspicion for septic shock Rx: - Hydrocortisone 100mg x1 IV given - Will start Hydrocortisone 50mg PO q6HR today - Transition to Hydrocortisone BID from tomorrow to cover for possible underlying adrenal insufficiency - Recommend to keep the central line in situ, incase BP drops again - Poison control consulted regarding treatment plan, agreed with calcium gluconate. - Cardiology, Dr. Clark consulted, pending official recommendations - Will titrate Levophed and transition to IVF + Midodrine PRN Resp: No active problems. GI Melena Hx of Gastric cancer s/p total gastrectomy Dx: Patient has a few melanotic stools prior to presnetation. Hb 9-10 and Hct 28-30 (baseline Hb ~11) Rx: - GI Dr. Aguilar consulted. Appreciate recommendations - EGD to be scheduled once hemodynamically stable Renal Hypocalcemia Dx: 04/30 : Received Krunal Gluc 2g x1 05/01 : Ca still 8 (low), unable to calculate corrected Ca but albumin yesterday was 3.4 Rx: - Calcium gluconate 2 g IV x 1 given. - PO Ca Carb x1 given as well - Bradycardia improved 50s --> 70s post calcium. Will follow closely and replete as needed Endocrine Hypothyroidism Dx: TSH 6.37 (04/30) Follow up free T4 0.83 (05/01) Rx: Started Levothyroxine 50 mcg daily Possible adrenal insufficiency Rx: AM Cortisol ordered on 05/01 Recommend close follow up with PCP for results Hydrocortisone to continue (as described above under shock) Heme/oncology Acute on chronic anemia Dx: acute worsening in the setting of GI bleed Rx: - Monitor CBC, GI, Dr. Aguilar consulted. - Iron panel : low iron - Will start IV iron therapy: Venofer 200mg x 5 days - Started daily B12/FA supplementation ICU Health maintenance: Dispo: Admit to ICU for distributive shock requiring vasopressors Diet: Regular diet DVT ppx: SCDs GI ppx: No IV lines: 2 pIV Central line: RIJ catheter Arterial line: No Hale: No Code status: FULL CODE Plan of care discussed with Attending Dr. Oliver Arevalo M.D. PGY2 Disclaimer: Minor errors in dry color tester may be present as this note was dictated using voice recognition software.
[2025-05-01] MEDS: HYDROCORTISONE 5 MG TABLET 50 MG PO ×2 (12:10→17:44)
[2025-05-01] MEDS: CYANOCOBALAMIN INJ 1,000 mCg/ML VIAL 1000 MCG IM (13:06)
[2025-05-01] MEDS: IRON SUCROSE CPLX INJ 20 MG/ML VIAL 5 ML 200 MG IVP (13:06)
[2025-05-01] MEDS: VITAMIN B COMPLEX TABLET 1 TAB PO (13:06)
--- NOTE | 2025-05-01 13:17 | PC.SS ---
Update: Patient on room air. P.O. feeding. Blood pressure low. No bennett catheter. Cardiology is consulting. GI is consulting.
--- NOTE | 2025-05-01 14:51 | ESPR_ITS ---
Documentation for date of: 05/01/25 Subjective Subjective Interval history: Kavita Kwon is 59 yr female with PMH of hypertension, chronic pain, cervical cancer s/p hysterectomy,radiation and chemotherapy [1985,2002] in remission, status post total gastrectomy with reconstruction in [facility][2018], migraine headaches, and hyperlipidemia who presented to [facility] on 04/29/25 due to worsening weakness/fatigue for past week. Patient would sleep for most of the days and still not feel rested. Also endorsed diarrhea co- inciding with the fatigue, decreased appetite, and unintentional weight loss. Stated that she would soil herself and needed to wear diaper. Vitals were unstable at outpatient PCP clinic and told to come to ED. ED vitals showed hypotension 80s/50s, bradycardic in the 40s, glucose level of 40. Also remarkable to AKIRA with Cr 1.7 ( baseline of 1.3). Her hemoglobin had significant drop from her baseline. EKG showed sinus bradycardia. Chest x-ray showed mild congestion. CT abdomen/pelvis showed mild rectal thickening. Patient received dextrose IV fluids, 1 amp of dextrose, and IV atropine. Her heart rate improved but her blood pressure remained critical. She was admitted into ICU for vasopressors. Sources of shock including cardiogenic and infection were ruled. Possible cause 2/2 verapamil toxicity which was treated with reversal agent calcium gluconate. While in ICU, she was started on midodrine 5mg PRN after off the levophed. Started on Levothyroxine 50mcg (TSH 6.37, free T4 low 0.83), and hydrocortisone for suspicion of adrenal insufficiency (cortisol levels pending). Plan to taper dose PO 50mg q6hr. Blood cultures have been negative. Per ICU team, leave in central line for another 24hrs if pressors are needed again. GI Dr. Aguilar consulted for GI bleed. Pending EGD when hemodynamically stable. Patient was downgraded to floors today, accepted by team A. Exam Vital Signs Temp Pulse Resp BP Pulse Ox O2 Del Method 97.8 F 93 10 L 106/57 L 98 Room Air 05/01/25 12:00 05/01/25 13:15 05/01/25 13:15 05/01/25 13:15 05/01/25 13:15 05/01/25 08:00 Narrative Exam General:Middle age female, No acute distress, cooperative HEENT: NCAT, No JVD noted. Mucosa moist. Pupils are equal and reactive to light bilaterally, RIJ catheter Cardiovascular: Normal S1 and S2. Regular rate and rhythm. Respiratory: Lungs are clear to auscultation bilaterally. No wheezing or crackles heard. Abdomen: Soft, nontender, not distended, normal bowel sounds. Healed lower abdomen surgical scar, surgical umbilicus. Skin: Warm to touch, dry, no rashes noted, lots of tattoos, facial piercings Musculoskeletal: No gross injuries. Able to move all 4 extremities. No pitting edema Neuro: Alert and oriented x3. No focal neuro deficits. Psych: Normal affect and mood Objective Labs 05/02/25 04:30 05/02/25 04:30 Labs: Laboratory Results - last 24 hr 04/30/25 05/01/25 14:00 04:50 WBC 3.3 L D RBC 3.10 L Hgb 9.7 L Hct 29.9 L MCV 97 MCH 31.3 MCHC 32.4 RDW Std Deviation 47.8 H Plt Count 141 D Neut % (Auto) 61 Lymph % (Auto) 33 [place] % (Auto) 4 Eos % (Auto) 1 Baso % (Auto) 0 Neut # (Auto) 2.0 Lymph # (Auto) 1.1 [place] # (Auto) 0.1 Eos # (Auto) 0.0 Baso # (Auto) 0.0 Immature Gran # (Auto) 0.01 H Absolute Nucleated RBC 0.00 Immature Gran % 0 Nucleated RBC % 0 Sodium 143 Potassium 4.2 Chloride 114 H Carbon Dioxide 20.7 Anion Gap 8 BUN 16 Creatinine 1.1 Estim Creat Clear Calc 48.9 L eGFR 58 L BUN/Creatinine Ratio 15 Glucose 89 Calculated Osmolality 285 Calcium 8.0 L Iron 48 L TIBC 214 L Iron Saturation 22 Unsat Iron Binding 166 L Free T4 0.83 L Stool Occult Blood Negative Quality Measures Quality Measures none Assessment & Plan Assessment Current Active Medications: Generic Name Dose Route Start Last Admin Trade Name Freq PRN Reason Stop Dose Admin Acetaminophen 650 mg 04/30/25 08:44 Acetaminophen 325 Mg Tablet PO 05/30/25 08:43 Q4HR PRN Pain 1-3 or Temp >100.3 Albuterol 2.5 mg 05/01/25 03:37 Albuterol Rt 2.5 Mg/0.5 Ml Nebu INH 05/31/25 06:59 Q6HRRT PRN SHORTNESS OF BREATH OR WHEEZE Albuterol/Ipratropium 3 ml 04/30/25 11:00 05/01/25 06:44 Albuterol/Ipratropium (Duoneb) Rt Perri 3 Ml Nebu INH 05/30/25 10:59 3 ml BID SULEMAN Administration Atorvastatin Calcium 10 mg 04/29/25 21:00 04/30/25 21:04 Atorvastatin Calcium 10 Mg Tablet PO 05/29/25 20:59 10 mg HS SULEMAN Administration Bupropion HCl 300 mg 04/30/25 09:00 05/01/25 08:34 Bupropion Hcl Xl 150 Mg Tabcr PO 05/30/25 08:59 300 mg QDAY SULEMAN Administration Hydrocortisone 50 mg 05/01/25 12:30 05/01/25 12:10 Hydrocortisone 5 Mg Tablet PO 05/02/25 05:00 50 mg Q6H SULEMAN Administration Hydrocortisone 50 mg 05/02/25 09:00 Hydrocortisone 5 Mg Tablet PO 05/08/25 21:00 BID SULEMAN Norepinephrine/Dextrose 8 mg in 250 mls @ 5.528 mls/hr 04/29/25 17:33 04/30/25 17:00 Levophed In D5w 8mg/250ml IV 05/29/25 17:32 0 mcg/kg/min .Q24H PRN 0 mls/hr PER PROTOCOL Titration Protocol 0.05 MCG/KG/MIN Iron Sucrose 200 mg 05/01/25 12:30 05/01/25 13:06 Iron Sucrose Cplx Inj 20 Mg/Ml Vial 5 Ml IVP 05/05/25 12:40 200 mg DAILY SULEMAN Administration Levothyroxine Sodium 50 mcg 05/02/25 06:00 Levothyroxine Sodium 25 Mcg Tablet PO 06/01/25 05:59 ACBR SULEMAN Midodrine 5 mg 05/01/25 12:39 Midodrine 5 Mg Tablet PO 05/31/25 13:59 TID PRN MAP <65 Oxycodone/Acetaminophen 1 tab 04/29/25 20:47 05/01/25 07:16 Oxycodone/Apap 5/325 Tablet PO 05/04/25 20:46 1 tab Q6H PRN Administration PAIN SCALE 4-6 (Moderate Pantoprazole Sodium 40 mg 05/02/25 09:00 Pantoprazole Inj 40 Mg Vial IVP 06/01/25 08:59 QDAY SULEMAN Fluticasone/Salmeterol 1 puff 04/29/25 21:00 05/01/25 06:44 Fluticasone/Salmeterol 250/50 14 Dose Inh INH 05/29/25 20:59 1 puff BIDRT SULEMAN Administration Sodium Chloride 3 ml 04/29/25 20:51 05/01/25 03:37 Sodium Chloride Rt Perri 0.9% 3 Ml Nebu INH 05/29/25 20:50 3 ml PRN PRN Administration SOLN Topiramate 150 mg 04/29/25 21:00 05/01/25 08:35 Topiramate 100 Mg Tablet PO 05/29/25 20:59 150 mg BID SULEMAN Administration Vitamin B Complex/Vit C/Folic Acid 1 tab 05/01/25 12:45 05/01/25 13:06 Vitamin B Complex Tablet PO 05/31/25 12:44 1 tab QDAY SULEMAN Administration Plan Kavita Kwon is 59 yr female with PMH of hypertension, chronic pain, cervical cancer s/p hysterectomy,radiation and chemotherapy [1985,2002] in remission, status post total gastrectomy with reconstruction in [facility][2018], migraine headaches, and hyperlipidemia who presented to [facility] on 04/29/25 due to worsening weakness/fatigue for past week. ED vitals showed hypotension 80s/50s, bradycardic in the 40s, glucose level of 40. Also remarkable to AKIRA with Cr 1.7 ( baseline of 1.3). She was admitted into ICU for vasopressors. Sources of shock including cardiogenic and infection were ruled. Possible cause 2/2 verapamil toxicity which was treated with reversal agent calcium gluconate. Patient now stable and downgraded to floors 05/01. #Fatigue 2/2 distributive shock-resolved #Bradycardia-resolved Likely secondary to verapamil toxicity, possibly confounded by hypothyroidism, low suspicion for septic shock. No sources of infection at this time. Ruling out adrenal insufficiency. Poison control consulted regarding treatment plan, agreed with calcium gluconate. -Hydrocortisone 50mg PO q6HR today -transition to Hydrocortisone BID from tomorrow to cover for possible underlying adrenal insufficiency -cortisol levels pending -cardiology Dr. Clark consulted--no additional workup needed -PO midodrine 5mg TID PRN if MAP<65 #Acute blood loss anemia 2/2 upper GI bleed atient has a few melanotic stools prior to presnetation. Hb on admission 9.6. Iron low 48. - GI Dr. Aguilar consulted, EGD pending -ICU started IV iron therapy: Venofer 200mg x 5 days -Pantoprazole 40 mg BID - Hold NSAIDs, antiplatelets -daily CBC -transfuse if Hb <7 #Hypothyroidism TSH 6.37, Follow up free T4 0.83. -Started Levothyroxine 50 mcg daily -follow up outpatient #HLD -atrovastatin 10mg HS #COPD -duonebs -oxygen PRN goal 88-92% -budesonide #Hypertension -stopped verapamil -no anti hypertensives at this time Health maintenance: Dispo: downgraded 05/01, GI bleed, verapamil toxicity FEN: regular DVT prophylaxis: SCDs CODE STATUS: Full code The patient's management plan was discussed with my attending physician Dr. Raymond. Aurelia Jose, PGY-1 Attending Provider Attestation/Addendum I attest that I was physically present for the evaluation, physical examination, lab and imaging review of the patient with the residents. I discussed the case with the residents and agree with the findings and plans of care as documented above. Patient is a 59 years old female with past medical history of hypertension, chronic pain, cervical cancer status post hysterectomy, radiation and chemotherapy, status post total gastrectomy with reconstruction, migraine headaches and hyperlipidemia who presented to the ED with complaint of worsening weakness and fatigue. Patient was then admitted to ICU for management of acute encephalopathy, distributive shock, bradycardia, electrolyte imbalances. Patient received vasopressors in the ICU along with IV hydration. Concern was for polypharmacy, decreased oral intake, hypothyroidism and possible adrenal insufficiency. Her chemistry panel shows improving calcium renal panel and other electrolytes. Patient has been off of vasopressors and is transferred to medical floor for further management. Antihypertensives are currently patient is on midodrine as needed. Also has been on hydrocortisone and levothyroxine. Cardiology following closely, appreciate recommendations. There is also concern of acute blood loss anemia secondary to GI bleeding, gastroenterology following, patient is planned for EGD after her vitals are stable. Continues to be on IV iron therapy along with Protonix. Gareth Raymond MD
[2025-05-01] MEDS: ATORVASTATIN CALCIUM 10 MG TABLET PO (20:07)
--- NOTE | 2025-05-01 21:34 | ESPR_ITS ---
Documentation for date of: 05/01/25 Subjective Subjective Interval history: Patient evaluated downtrending hemoglobin at 9.7 and 28.9 But also improving BUN/creatinine from 21 and 1.4-16 and 1.1 In which is for dilutional Patient still on pressors Hold off doing an endoscopy at this time Exam Vital Signs Temp Pulse Resp BP Pulse Ox O2 Del Method 97.9 F 71 15 118/63 99 Room Air 05/01/25 20:00 05/01/25 20:00 05/01/25 20:00 05/01/25 20:00 05/01/25 20:00 05/01/25 20:00 Objective Labs 05/01/25 04:50 05/01/25 04:50 Labs: Laboratory Results - last 24 hr 05/01/25 04:50 WBC 3.3 L D RBC 3.10 L Hgb 9.7 L Hct 29.9 L MCV 97 MCH 31.3 MCHC 32.4 RDW Std Deviation 47.8 H Plt Count 141 D Neut % (Auto) 61 Lymph % (Auto) 33 [place] % (Auto) 4 Eos % (Auto) 1 Baso % (Auto) 0 Neut # (Auto) 2.0 Lymph # (Auto) 1.1 [place] # (Auto) 0.1 Eos # (Auto) 0.0 Baso # (Auto) 0.0 Immature Gran # (Auto) 0.01 H Absolute Nucleated RBC 0.00 Immature Gran % 0 Nucleated RBC % 0 Sodium 143 Potassium 4.2 Chloride 114 H Carbon Dioxide 20.7 Anion Gap 8 BUN 16 Creatinine 1.1 Estim Creat Clear Calc 48.9 L eGFR 58 L BUN/Creatinine Ratio 15 Glucose 89 Calculated Osmolality 285 Calcium 8.0 L Iron 48 L TIBC 214 L Iron Saturation 22 Unsat Iron Binding 166 L Free T4 0.83 L Impressions Impression: Posthemorrhagic anemia acute Hypotension on pressors Plan Hold off doing an endoscopy at this point Continue to monitor CBC Assessment & Plan A&P Narrative # Melena. 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 in the morning and do the endoscopy tomorrow evening Thank you very much for the opportunity to participate in the care of this patient Time Spent With Patient Time: Total time spent is greater than 50% in coordination of care (as documented) at patient's floor/unit and/or counseling patient:
[2025-05-02] VITALS (16 sets, daily range): BP systolic 92–122; BP diastolic 51–69; PULSE 52–86; RESP 12–20; TEMP 36.1–37.1; O2SAT 95–100; BMI 25.2
[2025-05-02] MEDS: HYDROCORTISONE 5 MG TABLET 50 MG PO ×2 (00:11→15:29)
[2025-05-02] MEDS: oxyCODONE/APAP 5/325 TABLET 1 TAB PO ×4 (00:15→18:47)
--- NOTE | 2025-05-02 01:19 | ESPR_ITS ---
RE: HERSON PROCTOR : 1965 DATE OF SERVICE: 05/01/2025 SUBJECTIVE: The patient was seen for cardiovascular assessment, admitted to the hospital initially with hypotension and bradycardia due to drug-induced, doing fairly well, now is transferred to telemetry, not having any shortness of breath or chest pain . Medications were withheld. OBJECTIVE: General: The patient is normal. Vital Signs: Blood pressure 118/60, pulse rate 70, respirations 15, temperature normal. HEENT: Head is atraumatic and normocephalic. Eyes normal. ENT normal. Neck: Supple. No JVD. Carotid pulses felt with no bruits. Chest: Symmetrical. Lungs: Decreased breath sounds. No rales or rhonchi. Heart: S1 and S2 regular. Abdomen: Soft. Extremities: Mild edema. ASSESSMENT AND PLAN: 1. Hypotension, resolved. History of gastric tumor requiring intervention. 2. Sinus bradycardia due to drug-induced bradycardia. Recommendation is continue monitoring for now. Blood pressure medications have been withheld. Her blood pressure is doing well. She was on polypharmacy, probably need to reduce. 3. Acute blood loss secondary to upper gastrointestinal bleeding. Dr. Aguilar has been consulted. Esophagogastroduodenoscopy pending. The patient is started on medical management. 4. Hypothyroidism. TSH is slightly high at 6.37. 5. Hypercholesterolemia. 6. Chronic obstructive pulmonary disease. 7. [id number] hypertension on multiple medications. All the medications have been stopped for now. Recommended continued medical management. If blood pressure is going up, may consider starting low-dose LIANE inhibitor for now. DT: 00:01:39 TT: 00:57:00 Ref: [id number] - TID: [id number] MTDD
[2025-05-02 05:26] LABS: Basophils % (Auto) 0 % (0-2.5); Eosinophils % (Auto) 1 % (0-10); Hematocrit 29.6 % (36.0-46.0); Hemoglobin 9.9 g/dL (12.0-16.0); Immature Granulocytes % (Auto) 0 % (0-0); Immature Granulocytes Auto 0.03 Thou/mm3 (0.00-0.00); Lymphocytes # (Auto) 0.7 Thou/mm3 (1.0-4.8); Lymphocytes % (Auto) 9 % (10-50); Mean Corpuscular HGB Conc 33.4 g/dl (31.0-37.0); Mean Corpuscular Hemoglobin 31.8 pg (25.0-35.0); Mean Corpuscular Volume 95 fL (80-100); Monocytes # (Auto) 0.3 Thou/mm3 (0.0-0.8); Monocytes % (Auto) 4 % (0-12); Neutrophils # (Auto) 6.3 Thou/mm3 (1.8-7.7); Neutrophils % (Auto) 86 % (37-80); Nucleated Red Blood Cell % 0 /100 WBC (0); Platelet Count 130 Thou/mm3 (140-440); RDW Standard Deviation 45.7 fL (36.4-46.3); Red Blood Count 3.11 Miln/mm3 (4.00-5.20); White Blood Count 7.3 Thou/mm3 (3.6-11.0)
[2025-05-02 05:51] LABS: Albumin, Serum 3.4 gm/dL (3.4-4.8); Anion Gap 9 (7-16); BUN/Creatinine Ratio 15 Ratio (12-20); Blood Urea Nitrogen 17 mg/dL (9-23); Calcium 8.4 mg/dL (8.3-10.6); Calcium (Corrected) 8.9 mg/dL (8.5-10.1); Carbon Dioxide 20.1 mMol/L (20.0-31.0); Chloride 114 mMol/L (98-107); Creatinine (Component) 1.1 mg/dL (0.6-1.3); Glucose 134 mg/dL (74-106); Osmolality,Calculated 288 (275-295); Phosphorous 3.8 mg/dL (2.4-5.1); Potassium 3.8 mMol/L (3.4-5.1); Sodium 143 mMol/L (136-145); eGFR 58 See Note
[2025-05-02 05:58] LABS: Ferritin 158 ng/mL (7.3-270.7)
[2025-05-02] MEDS: LEVOTHYROXINE SODIUM 25 MCG TABLET 50 MCG PO (05:59)
[2025-05-02 06:07] LABS: Folate 10.75 ng/mL (>5.38); Vitamin B12 > 2000 pg/mL (211-911)
[2025-05-02] MEDS: FLUTICASONE/SALMETEROL 250/50 14 DOSE INH 1 PUFF INH ×2 (07:13→18:55)
[2025-05-02] MEDS: ALBUTEROL/IPRATROPIUM (Duoneb) RT SOL 3 ML NEBU INH ×2 (07:13→18:58)
--- NOTE | 2025-05-02 08:27 | XR_ITS ---
Examination: Renal sonography Renal Doppler sonographic evaluation renal arteries Date and time: 01/02/2025 1310 hours INDICATIONS: Uncontrolled hypertension noticed beginning one week ago TECHNIQUE AND FINDINGS: Multiple sonographic images kidneys, assessment peak arterial systolic velocities as well as calculation resistive indices and renal or ratios Right kidney 10.8 cm cortex 1.4 cm Left kidney 10.8 cm cortex 1.2 cm Small bilateral renal cysts No elevation peak systolic velocities bilaterally No significant elevation resistive indices bilaterally Normal renal aortic ratios bilaterally IMPRESSION: Bilateral renal cortical thinning No Doppler sonographic findings of renal artery stenosis
[2025-05-02] MEDS: TOPIRAMATE 100 MG TABLET 150 MG PO ×2 (11:54→20:33)
[2025-05-02] MEDS: PANTOPRAZOLE INJ 40 MG VIAL IVP ×2 (11:55→20:36)
[2025-05-02] MEDS: BuPROPion HCL XL 150 MG TABCR 300 MG PO (11:55)
[2025-05-02] MEDS: VITAMIN B COMPLEX TABLET 1 TAB PO (11:55)
--- NOTE | 2025-05-02 12:07 | PC.PT ---
PT eval only. Patient was xI with bed mobility, transfers, and ambulation using an AD. Patient is safe to ambulate to the bathroom with a quad cane and no staff assist. Patient is also safe to ambulate in the halls with a quad cane with staff assist for safety over longer distances. RN made aware.
[2025-05-02] MEDS: IRON SUCROSE CPLX INJ 20 MG/ML VIAL 5 ML 200 MG IVP (12:37)
--- NOTE | 2025-05-02 13:40 | PD.RESPRO ---
Documentation for date of: 05/02/25 Subjective Subjective Interval history: Patient examined at bedside. No events overnight, complains of a headache but no dizziness or chest pain. BP 107/59 with midodrine support, HR 65. Cr 1.1, hemoglobin 9.9 stable from yesterday. Additional workup for causes of fatigue including B12 deficiency, vitamin D deficiency. B12 was greater than 2000 and vitamin D results pending. Today patient stated that she does have a history of lupus and had a stroke at the age of 27 which resulted in left-sided weakness and aphasia for months. Denies any workup in the past. She was started on high-dose verapamil since that time for tight blood pressure control. Patient was in remission from lupus for few months but re started prednisone at home for possible flare. Endorsed abrupt discontinuation of the steroids which may have also worsened her symptoms. Continue hydrocortisone 50 mg twice daily and midodrine as needed for MAP less than 65. EGD pending. Exam Vital Signs Temp Pulse Resp BP Pulse Ox O2 Del Method 96.9 F 70 15 108/67 98 Room Air 05/02/25 08:00 05/02/25 08:00 05/02/25 08:00 05/02/25 08:00 05/02/25 08:00 05/02/25 08:00 Narrative Exam General:Middle age female, No acute distress, cooperative HEENT: NCAT, No JVD noted. Mucosa moist. Pupils are equal and reactive to light bilaterally, RIJ catheter Cardiovascular: Normal S1 and S2. Regular rate and rhythm. Respiratory: Lungs are clear to auscultation bilaterally. No wheezing or crackles heard. Abdomen: Soft, nontender, not distended, normal bowel sounds. Healed lower abdomen surgical scar, surgical umbilicus. Skin: Warm to touch, dry, no rashes noted, lots of tattoos, facial piercings Musculoskeletal: No gross injuries. Able to move all 4 extremities. No pitting edema Neuro: Alert and oriented x3. No focal neuro deficits. Psych: Normal affect and mood Objective Labs 05/02/25 04:30 05/02/25 04:30 Labs: Laboratory Results - last 24 hr 05/02/25 04:30 WBC 7.3 D RBC 3.11 L Hgb 9.9 L Hct 29.6 L MCV 95 MCH 31.8 MCHC 33.4 RDW Std Deviation 45.7 Plt Count 130 L Neut % (Auto) 86 H Lymph % (Auto) [address] % (Auto) 4 Eos % (Auto) 1 Baso % (Auto) 0 Neut # (Auto) 6.3 Lymph # (Auto) 0.[address] # (Auto) 0.3 Eos # (Auto) 0.0 Baso # (Auto) 0.0 Immature Gran # (Auto) 0.03 H Absolute Nucleated RBC 0.00 Immature Gran % 0 Nucleated RBC % 0 Sodium 143 Potassium 3.8 Chloride 114 H Carbon Dioxide 20.1 Anion Gap 9 BUN 17 Creatinine 1.1 Estim Creat Clear Calc 53.0 L eGFR 58 L BUN/Creatinine Ratio 15 Glucose 134 H D Calculated Osmolality 288 Calcium 8.4 Corrected Calcium 8.9 Phosphorus 3.8 Ferritin 158 Albumin 3.4 Vitamin B12 > 2000 H Folate 10.75 Quality Measures Quality Measures none Assessment & Plan Assessment Current Active Medications: Generic Name Dose Route Start Last Admin Trade Name Freq PRN Reason Stop Dose Admin Acetaminophen 650 mg 04/30/25 08:44 Acetaminophen 325 Mg Tablet PO 05/30/25 08:43 Q4HR PRN Pain 1-3 or Temp >100.3 Albuterol 2.5 mg 05/01/25 03:37 Albuterol Rt 2.5 Mg/0.5 Ml Nebu INH 05/31/25 06:59 Q6HRRT PRN SHORTNESS OF BREATH OR WHEEZE Albuterol/Ipratropium 3 ml 04/30/25 11:00 05/02/25 07:13 Albuterol/Ipratropium (Duoneb) Rt Perri 3 Ml Nebu INH 05/30/25 10:59 3 ml BID SULEMAN Administration Atorvastatin Calcium 10 mg 04/29/25 21:00 05/01/25 20:07 Atorvastatin Calcium 10 Mg Tablet PO 05/29/25 20:59 10 mg HS SULEMAN Administration Bupropion HCl 300 mg 04/30/25 09:00 05/02/25 11:55 Bupropion Hcl Xl 150 Mg Tabcr PO 05/30/25 08:59 300 mg QDAY SULEMAN Administration Hydrocortisone 50 mg 05/02/25 09:00 Hydrocortisone 5 Mg Tablet PO 05/08/25 21:00 BID SULEMAN Iron Sucrose 200 mg 05/01/25 12:30 05/02/25 12:37 Iron Sucrose Cplx Inj 20 Mg/Ml Vial 5 Ml IVP 05/05/25 12:40 200 mg DAILY SULEMAN Administration Levothyroxine Sodium 50 mcg 05/02/25 06:00 05/02/25 05:59 Levothyroxine Sodium 25 Mcg Tablet PO 06/01/25 05:59 50 mcg ACBR SULEMAN Administration Midodrine 5 mg 05/01/25 12:39 Midodrine 5 Mg Tablet PO 05/31/25 13:59 TID PRN MAP <65 Oxycodone/Acetaminophen 1 tab 04/29/25 20:47 05/02/25 12:40 Oxycodone/Apap 5/325 Tablet PO 05/04/25 20:46 1 tab Q6H PRN Administration PAIN SCALE 4-6 (Moderate Pantoprazole Sodium 40 mg 05/02/25 09:00 05/02/25 11:55 Pantoprazole Inj 40 Mg Vial IVP 06/01/25 08:59 40 mg QDAY SULEMAN Administration Fluticasone/Salmeterol 1 puff 04/29/25 21:00 05/02/25 07:13 Fluticasone/Salmeterol 250/50 14 Dose Inh INH 05/29/25 20:59 1 puff BIDRT SULEMAN Administration Sodium Chloride 3 ml 04/29/25 20:51 05/01/25 03:37 Sodium Chloride Rt Perri 0.9% 3 Ml Nebu INH 05/29/25 20:50 3 ml PRN PRN Administration SOLN Topiramate 150 mg 04/29/25 21:00 05/02/25 11:54 Topiramate 100 Mg Tablet PO 05/29/25 20:59 150 mg BID SULEMAN Administration Vitamin B Complex/Vit C/Folic Acid 1 tab 05/01/25 12:45 05/02/25 11:55 Vitamin B Complex Tablet PO 05/31/25 12:44 1 tab QDAY SULEMAN Administration Plan Kavita Kwon is 59 yr female with PMH of hypertension, chronic pain, cervical cancer s/p hysterectomy,radiation and chemotherapy [1985,2002] in remission, status post total gastrectomy with reconstruction in [facility][2018], migraine headaches, and hyperlipidemia who presented to [facility] ED on 04/29/25 due to worsening weakness/fatigue for past week. ED vitals showed hypotension 80s/50s, bradycardic in the 40s, glucose level of 40. Also remarkable to AKIRA with Cr 1.7 ( baseline of 1.3). She was admitted into ICU for vasopressors. Sources of shock including cardiogenic and infection were ruled. Possible cause 2/2 verapamil toxicity which was treated with reversal agent calcium gluconate. Patient now stable and downgraded to floors 05/01. #Fatigue 2/2 distributive shock-resolved #Bradycardia-resolved Likely secondary to verapamil toxicity, possibly confounded by hypothyroidism, low suspicion for septic shock. No sources of infection at this time. Ruling out adrenal insufficiency. Poison control consulted regarding treatment plan, agreed with calcium gluconate. -Hydrocortisone 50mg BID and taper to 50mg daily tomorrow. -cortisol levels pending -cardiology Dr. Clark consulted--no additional workup needed -PO midodrine 5mg TID PRN if MAP<65 -renal u/s pending as workup for AI #Lupus nephritis Patient was in remission from lupus for few months but re started prednisone at home for possible flare. Endorsed abrupt discontinuation of the steroids which may have also worsened her symptoms. -steroid course as noted above -repeat APL Ab pending -patient instructed to follow with endocrinology outpatient for close management #Acute blood loss anemia 2/2 upper GI bleed atient has a few melanotic stools prior to presnetation. Hb on admission 9.6. Iron low 48. - GI Dr. Aguilar consulted, EGD pending -ICU started IV iron therapy: Venofer 200mg x 5 days -Pantoprazole 40 mg daily - Hold NSAIDs, antiplatelets -daily CBC -transfuse if Hb <7 #Hypothyroidism TSH 6.37, Follow up free T4 0.83. -Started Levothyroxine 50 mcg daily -follow up outpatient #HLD -atrovastatin 10mg HS #COPD -duonebs -oxygen PRN goal 88-92% -budesonide #Hypertension #Hx CVA Takes rosuvastatin 5mg daily. Has not been taking aspirin. -stopped verapamil -no anti hypertensives at this time #Migraines Patient takes bupropion 300mg daily and topiramate 150mg BID. -resumed Health maintenance: Dispo: downgraded 05/01, GI bleed, verapamil toxicity FEN: regular DVT prophylaxis: SCDs CODE STATUS: Full code The patient's management plan was discussed with my attending physician Dr. Raymond. Aurelia Jose, PGY-1 Attending Provider Attestation/Addendum I attest that I was physically present for the evaluation, physical examination, lab and imaging review of the patient with the residents. I discussed the case with the residents and agree with the findings and plans of care as documented above. At bedside today, patient states she is feeling better. Complains of neck pain but denies any other complaints. Blood pressure has been stable without needing midodrine. We will taper her hydrocortisone dosage to 50 mg twice daily. Has been able to eat well. Lab results are stable, kidney function improving. Hemoglobin is stable at 9.9 today. A.m. cortisol level is pending. On further questioning, patient stated that she has a history of lupus, has been taking steroids which she stopped abruptly. Appears to be a likely reason for adrenal insufficiency leading to hypotension, bradycardia. We will continue with hydrocortisone, and slowly taper to go home on lower dose. Cardiology following closely, appreciate recommendations. Patient is planned for endoscopic studies with gastroenterology for GI bleed. Continues to be on levothyroxine for hypothyroidism. Gareth Raymond MD
--- NOTE | 2025-05-02 13:43 | PC.SS ---
Addendum entered by Prudence Stanford 05/02/25 14:10: SS follow up note; [employer] is pending authorization for a Rollator walker, if approved they will be contacting patient. Original Note: SS follow up note; SS was contacted by Aurelio from PT. He infomred SS that patient was requesting a Rollator walker. SS submitted DME inquiry for a Rollator walker.
--- NOTE | 2025-05-02 15:17 | PC.DIETICIAN ---
Nutrition recommendations: 1. Vegetarian diet (no milk to drink). Consider PUD/GERD/Ennis as needed after EGD. 2. Snacks between meals. 3. ProStat 30ml BID with breakfast and dinner (if pt agrees once NPO status is lifted). Patient meets ASPEN criteria for Severe chronic disease or condition related malnutrition due to: 1. Significant unintentional weight loss (~60 lb in 1 year). 2. Inadequate oral intake. 3. Severe muscle wasting. 4. Severe subcutaneous fat loss.
[2025-05-02] MEDS: ATORVASTATIN CALCIUM 10 MG TABLET PO (20:33)
--- NOTE | 2025-05-02 21:54 | SUR.PHASEI ---
Pt. arrived to recovery via gurney, eyes closed, VSS, responds to verbal commands, no c/o pain or nausea at this time, lung sounds clear, equal expansion joseluis., report received from Katty FLANAGAN.
--- NOTE | 2025-05-02 22:11 | SUR.PHASEI ---
Called and gave report on pt. s/p procedure to Will RN on telemetry unit.
--- NOTE | 2025-05-02 22:19 | SUR.PHASEI ---
Pt. transferred to room 271 via gurney by staff, VSS, no c/o pain or nausea at this time, Will RN assumed care of pt.
--- NOTE | 2025-05-02 22:44 | ESPR_ITS ---
RE: HERSON KWON : 1965 DATE OF SERVICE: 05/02/2025 SUBJECTIVE: Herson Kwon is doing about the same. She is still having blood pressure on the low side receiving both midodrine and hydrocortisone. She apparently did have a history of lupus and had a stroke 27 with some weakness. She was on high-dose Verapamil for tight control of blood pressure, which did cause a lot of hypotension, which appears to be improving, but she is still requiring supportive midodrine. OBJECTIVE: Vital Signs: Blood pressure 108/65, pulse rate 70, respirations 14, temperature normal, pulse oximetry 98% on room air. LABORATORY DATA: Hemoglobin 9.9, chronic anemia. Renal function normal. ASSESSMENT: 1. Bradycardia resolved possibly from Verapamil. 2. Hypertension, now running hypotension. 3. History of lupus remotely. RECOMMENDATIONS: The patient is quite stable currently. She does not require any antihypertensive drug therapy we will continue to monitor closely for any changes but no arrhythmias. No need for pacemaker implantation. DT: 20:53:58 TT: 21:52:00 Ref: [id number] - TID: [id number]
[2025-05-02] MEDS: NA SU/NAHCO3/KC/PEG (Golytely) 4,000 ML BTL 4000 ML PO (22:54)
[2025-05-03] VITALS (22 sets, daily range): BP systolic 95–135; BP diastolic 52–84; PULSE 50–83; RESP 12–26; TEMP 36.3–36.7; O2SAT 95–100; BMI 25.7
[2025-05-03] MEDS: LEVOTHYROXINE SODIUM 25 MCG TABLET 50 MCG PO (05:16)
[2025-05-03 06:41] LABS: Basophils # (Auto) 0.1 Thou/mm3 (0.0-0.2); Basophils % (Auto) 1 % (0-2.5); Eosinophils # (Auto) 0.7 Thou/mm3 (0.0-0.5); Eosinophils % (Auto) 9 % (0-10); Hematocrit 28.6 % (36.0-46.0); Hemoglobin 9.4 g/dL (12.0-16.0); Immature Granulocytes % (Auto) 0 % (0-0); Immature Granulocytes Auto 0.03 Thou/mm3 (0.00-0.00); Lymphocytes # (Auto) 1.3 Thou/mm3 (1.0-4.8); Lymphocytes % (Auto) 18 % (10-50); Mean Corpuscular HGB Conc 32.9 g/dl (31.0-37.0); Mean Corpuscular Hemoglobin 31.4 pg (25.0-35.0); Mean Corpuscular Volume 96 fL (80-100); Monocytes # (Auto) 0.4 Thou/mm3 (0.0-0.8); Monocytes % (Auto) 5 % (0-12); Neutrophils # (Auto) 4.6 Thou/mm3 (1.8-7.7); Neutrophils % (Auto) 66 % (37-80); Nucleated Red Blood Cell % 0 /100 WBC (0); Platelet Count 137 Thou/mm3 (140-440); RDW Standard Deviation 47.6 fL (36.4-46.3); Red Blood Count 2.99 Miln/mm3 (4.00-5.20); White Blood Count 6.9 Thou/mm3 (3.6-11.0)
[2025-05-03 07:02] LABS: Albumin, Serum 3.3 gm/dL (3.4-4.8); Anion Gap 7 (7-16); BUN/Creatinine Ratio 16 Ratio (12-20); Blood Urea Nitrogen 14 mg/dL (9-23); Calcium 8.1 mg/dL (8.3-10.6); Calcium (Corrected) 8.7 mg/dL (8.5-10.1); Carbon Dioxide 22.9 mMol/L (20.0-31.0); Chloride 115 mMol/L (98-107); Creatinine (Component) 0.9 mg/dL (0.6-1.3); Estimated Creatinine Clearance 63.8 mL/min (>60); Glucose 91 mg/dL (74-106); Osmolality,Calculated 289 (275-295); Phosphorous 2.4 mg/dL (2.4-5.1); Potassium 3.5 mMol/L (3.4-5.1); Sodium 145 mMol/L (136-145); eGFR > 60 See Note
[2025-05-03] MEDS: NA SU/NAHCO3/KC/PEG (Golytely) 4,000 ML BTL 4000 ML PO (07:08)
[2025-05-03] MEDS: ALBUTEROL/IPRATROPIUM (Duoneb) RT SOL 3 ML NEBU INH ×2 (07:33→18:30)
[2025-05-03] MEDS: FLUTICASONE/SALMETEROL 250/50 14 DOSE INH 1 PUFF INH ×2 (07:34→18:30)
[2025-05-03] MEDS: predniSONE 20 MG TABLET 40 MG PO (09:00)
[2025-05-03] MEDS: BuPROPion HCL XL 150 MG TABCR 300 MG PO (09:00)
[2025-05-03] MEDS: VITAMIN B COMPLEX TABLET 1 TAB PO (09:01)
[2025-05-03] MEDS: PANTOPRAZOLE INJ 40 MG VIAL IVP ×2 (09:01→21:47)
[2025-05-03] MEDS: TOPIRAMATE 100 MG TABLET 150 MG PO ×2 (09:02→21:47)
--- NOTE | 2025-05-03 09:32 | PD.RESPRO ---
Documentation for date of: 05/03/25 Subjective Subjective Interval history: Patient was seen and examined at bedside. No acute overnight events. Hemoglobin is stable 9.4, CMP unremarkable, echo was obtained yesterday which revealed EF of 65%. EKG was done yesterday by GI which showed mild gastritis no acute bleeding was noted. Patient is on PPI, plan is to do colonoscopy today, currently patient is getting bowel preparation with GoLytely. Will follow-up with GI for further recommendations. For now we will transition to p.o. prednisone, hemodynamically patient is stable, right IJ was DC'd. Exam Vital Signs Temp Pulse Resp BP Pulse Ox O2 Del Method O2 Flow Rate 97.9 F 65 12 114/62 95 Room Air 3 05/03/25 08:00 05/03/25 08:00 05/03/25 08:00 05/03/25 08:00 05/03/25 08:00 05/03/25 08:00 05/02/25 21:50 Narrative Exam General:Middle age female, No acute distress, cooperative HEENT: NCAT, No JVD noted. Mucosa moist. Pupils are equal and reactive to light bilaterally, RIJ catheter Cardiovascular: Normal S1 and S2. Regular rate and rhythm. Respiratory: Lungs are clear to auscultation bilaterally. No wheezing or crackles heard. Abdomen: Soft, nontender, not distended, normal bowel sounds. Healed lower abdomen surgical scar, surgical umbilicus. Skin: Warm to touch, dry, no rashes noted, lots of tattoos, facial piercings Musculoskeletal: No gross injuries. Able to move all 4 extremities. No pitting edema Neuro: Alert and oriented x3. No focal neuro deficits. Psych: Normal affect and mood Objective Labs 05/03/25 06:06 05/03/25 06:06 Labs: Laboratory Results - last 24 hr 05/03/25 06:06 WBC 6.9 RBC 2.99 L Hgb 9.4 L Hct 28.6 L MCV 96 MCH 31.4 MCHC 32.9 RDW Std Deviation 47.6 H Plt Count 137 L Neut % (Auto) 66 Lymph % (Auto) 18 [place] % (Auto) 5 Eos % (Auto) 9 Baso % (Auto) 1 Neut # (Auto) 4.6 Lymph # (Auto) 1.3 [place] # (Auto) 0.4 Eos # (Auto) 0.7 H Baso # (Auto) 0.1 Immature Gran # (Auto) 0.03 H Absolute Nucleated RBC 0.00 Immature Gran % 0 Nucleated RBC % 0 Sodium 145 Potassium 3.5 Chloride 115 H Carbon Dioxide 22.9 Anion Gap 7 BUN 14 Creatinine 0.9 Estim Creat Clear Calc 63.8 eGFR > 60 BUN/Creatinine Ratio 16 Glucose 91 Calculated Osmolality 289 Calcium 8.1 L Corrected Calcium 8.7 Phosphorus 2.4 Albumin 3.3 L Quality Measures Quality Measures none Assessment & Plan Assessment Current Active Medications: Generic Name Dose Route Start Last Admin Trade Name Freq PRN Reason Stop Dose Admin Acetaminophen 650 mg 04/30/25 08:44 Acetaminophen 325 Mg Tablet PO 05/30/25 08:43 Q4HR PRN Pain 1-3 or Temp >100.3 Albuterol 2.5 mg 05/01/25 03:37 Albuterol Rt 2.5 Mg/0.5 Ml Nebu INH 05/31/25 06:59 Q6HRRT PRN SHORTNESS OF BREATH OR WHEEZE Albuterol/Ipratropium 3 ml 04/30/25 11:00 05/03/25 07:33 Albuterol/Ipratropium (Duoneb) Rt Perri 3 Ml Nebu INH 05/30/25 10:59 3 ml BID SULEMAN Administration Atorvastatin Calcium 10 mg 04/29/25 21:00 05/02/25 20:33 Atorvastatin Calcium 10 Mg Tablet PO 05/29/25 20:59 10 mg HS SULEMAN Administration Bupropion HCl 300 mg 04/30/25 09:00 05/03/25 09:00 Bupropion Hcl Xl 150 Mg Tabcr PO 05/30/25 08:59 300 mg QDAY SULEMAN Administration Dextrose 25 ml 05/03/25 05:59 Dextrose 50%-Water Inj 50 Ml Syringe IV 06/02/25 05:58 Q15MIN PRN BG 50-70 responsive npo pt Dextrose 50 ml 05/03/25 05:59 Dextrose 50%-Water Inj 50 Ml Syringe IV 06/02/25 05:58 Q15MIN PRN BG <50 OR BG <70 & pt unresponsive Iron Sucrose 200 mg 05/01/25 12:30 05/02/25 12:37 Iron Sucrose Cplx Inj 20 Mg/Ml Vial 5 Ml IVP 05/05/25 12:40 200 mg DAILY SULEMAN Administration Levothyroxine Sodium 50 mcg 05/02/25 06:00 05/03/25 05:16 Levothyroxine Sodium 25 Mcg Tablet PO 06/01/25 05:59 50 mcg ACBR SULEMAN Administration Midodrine 5 mg 05/01/25 12:39 Midodrine 5 Mg Tablet PO 05/31/25 13:59 TID PRN MAP <65 Oxycodone/Acetaminophen 1 tab 04/29/25 20:47 05/02/25 18:47 Oxycodone/Apap 5/325 Tablet PO 05/04/25 20:46 1 tab Q6H PRN Administration PAIN SCALE 4-6 (Moderate Pantoprazole Sodium 40 mg 05/02/25 21:00 05/03/25 09:01 Pantoprazole Inj 40 Mg Vial IVP 06/01/25 20:59 40 mg BID SULEMAN Administration Prednisone 40 mg 05/03/25 09:00 05/03/25 09:00 Prednisone 20 Mg Tablet PO 05/10/25 08:27 40 mg QDAY SULEMAN Administration Fluticasone/Salmeterol 1 puff 04/29/25 21:00 05/03/25 07:34 Fluticasone/Salmeterol 250/50 14 Dose Inh INH 05/29/25 20:59 1 puff BIDRT SULEMAN Administration Sodium Chloride 3 ml 04/29/25 20:51 05/01/25 03:37 Sodium Chloride Rt Perri 0.9% 3 Ml Nebu INH 05/29/25 20:50 3 ml PRN PRN Administration SOLN Topiramate 150 mg 04/29/25 21:00 05/03/25 09:02 Topiramate 100 Mg Tablet PO 05/29/25 20:59 150 mg BID SULEMAN Administration Vitamin B Complex/Vit C/Folic Acid 1 tab 05/01/25 12:45 05/03/25 09:01 Vitamin B Complex Tablet PO 05/31/25 12:44 1 tab QDAY SULEMAN Administration Plan Kavita Kwon is 59 yr female with PMH of hypertension, chronic pain, cervical cancer s/p hysterectomy,radiation and chemotherapy [1985,2002] in remission, status post total gastrectomy with reconstruction in [facility][2018], migraine headaches, and hyperlipidemia who presented to [facility] ED on 04/29/25 due to worsening weakness/fatigue for past week. ED vitals showed hypotension 80s/50s, bradycardic in the 40s, glucose level of 40. Also remarkable to AKIRA with Cr 1.7 ( baseline of 1.3). She was admitted into ICU for vasopressors. Sources of shock including cardiogenic and infection were ruled. Possible cause 2/2 verapamil toxicity which was treated with reversal agent calcium gluconate. Patient now stable and downgraded to floors 05/01. 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 No sources of infection at this time. Ruling out adrenal insufficiency. Poison control consulted regarding treatment plan, agreed with calcium gluconate. -prednisone 40 qday with a plan of taper outpatient -cortisol levels pending -cardiology Dr. Clark consulted--no additional workup needed -PO midodrine 5mg TID PRN if MAP<65 -renal u/s NO renal artery stenosis #Lupus nephritis Patient was in remission from lupus for few months but re started prednisone at home for possible flare. Endorsed abrupt discontinuation of the steroids which may have also worsened her symptoms. -steroid course as noted above -patient is followin Dr Oreilly(Rheum)in [place], in outpatient setting #Acute blood loss anemia 2/2 upper GI bleed patient has a few melanotic stools prior to presnetation. Hb on admission 9.6. Iron low 48. -GI Dr. Aguilar consulted, EGD showed gastritis, no acute bleeding noted -ICU started IV iron therapy: Venofer 200mg x 5 days -Pantoprazole 40 mg daily -Hold NSAIDs, antiplatelets -pending bowel prep for colonoscopy -daily CBC -transfuse if Hb <7 #Hypothyroidism TSH 6.37, Follow up free T4 0.83. -Started Levothyroxine 50 mcg daily -follow up outpatient #HLD -atrovastatin 10mg HS #COPD -duonebs -oxygen PRN goal 88-92% -budesonide #Hx of Hypertension #Hx CVA Takes rosuvastatin 5mg daily. Has not been taking aspirin. -stopped verapamil -no anti hypertensives at this time #Migraines Patient takes bupropion 300mg daily and topiramate 150mg BID. -resumed Health maintenance: Dispo: tele FEN: regular DVT prophylaxis: SCDs CODE STATUS: Full code The patient's management plan was discussed with my attending physician Dr. Raymond. Ashley Ureña MD PGY-2 Attending Provider Attestation/Addendum I attest that I was physically present for the evaluation, physical examination, lab and imaging review of the patient with the residents. I discussed the case with the residents and agree with the findings and plans of care as documented above. At bedside today, patient states she is feeling well and denies any new complaints. Patient was not able to receive her hydrocortisone at p.o. formulation was not available. We will switch to prednisone daily. Blood pressure remained stable. Patient underwent EGD yesterday, found to have esophagitis. Currently on GoLytely preparation for colonoscopy. Gareth Raymond MD
[2025-05-03] MEDS: IRON SUCROSE CPLX INJ 20 MG/ML VIAL 5 ML 200 MG IVP (10:12)
--- NOTE | 2025-05-03 12:40 | PC.SS ---
SS follow up note; Colonoscopy pending, patient will discharge back home when medically cleared.
[2025-05-03] MEDS: ATORVASTATIN CALCIUM 10 MG TABLET PO (21:46)
[2025-05-03] MEDS: oxyCODONE/APAP 5/325 TABLET 1 TAB PO (21:51)
[2025-05-04] VITALS (8 sets, daily range): BP systolic 109–121; BP diastolic 48–70; PULSE 55–83; RESP 15–22; TEMP 36.4–36.6; O2SAT 95–100; BMI 25.6
[2025-05-04] MEDS: LEVOTHYROXINE SODIUM 25 MCG TABLET 50 MCG PO (05:05)
[2025-05-04 06:20] LABS: Basophils # (Auto) 0.1 Thou/mm3 (0.0-0.2); Basophils % (Auto) 1 % (0-2.5); Eosinophils # (Auto) 0.8 Thou/mm3 (0.0-0.5); Eosinophils % (Auto) 12 % (0-10); Hematocrit 26.5 % (36.0-46.0); Hemoglobin 9.1 g/dL (12.0-16.0); Immature Granulocytes % (Auto) 0 % (0-0); Immature Granulocytes Auto 0.02 Thou/mm3 (0.00-0.00); Lymphocytes # (Auto) 1.4 Thou/mm3 (1.0-4.8); Lymphocytes % (Auto) 24 % (10-50); Mean Corpuscular HGB Conc 34.3 g/dl (31.0-37.0); Mean Corpuscular Hemoglobin 31.9 pg (25.0-35.0); Mean Corpuscular Volume 93 fL (80-100); Monocytes # (Auto) 0.4 Thou/mm3 (0.0-0.8); Monocytes % (Auto) 6 % (0-12); Neutrophils # (Auto) 3.4 Thou/mm3 (1.8-7.7); Neutrophils % (Auto) 56 % (37-80); Nucleated Red Blood Cell % 0 /100 WBC (0); Platelet Count 131 Thou/mm3 (140-440); RDW Standard Deviation 45.7 fL (36.4-46.3); Red Blood Count 2.85 Miln/mm3 (4.00-5.20); White Blood Count 6.1 Thou/mm3 (3.6-11.0)
[2025-05-04] MEDS: FLUTICASONE/SALMETEROL 250/50 14 DOSE INH 1 PUFF INH (06:31)
[2025-05-04 06:38] LABS: Albumin, Serum 3.1 gm/dL (3.4-4.8); Anion Gap 10 (7-16); BUN/Creatinine Ratio 14 Ratio (12-20); Blood Urea Nitrogen 13 mg/dL (9-23); Calcium 7.9 mg/dL (8.3-10.6); Calcium (Corrected) 8.6 mg/dL (8.5-10.1); Carbon Dioxide 23.5 mMol/L (20.0-31.0); Chloride 115 mMol/L (98-107); Creatinine (Component) 0.9 mg/dL (0.6-1.3); Estimated Creatinine Clearance 63.8 mL/min (>60); Glucose 82 mg/dL (74-106); Osmolality,Calculated 293 (275-295); Phosphorous 2.4 mg/dL (2.4-5.1); Potassium 3.6 mMol/L (3.4-5.1); Sodium 148 mMol/L (136-145); eGFR > 60 See Note
[2025-05-04] MEDS: ALBUTEROL/IPRATROPIUM (Duoneb) RT SOL 3 ML NEBU INH (07:21)
[2025-05-04] MEDS: PANTOPRAZOLE INJ 40 MG VIAL IVP (09:10)
[2025-05-04] MEDS: BuPROPion HCL XL 150 MG TABCR 300 MG PO (09:11)
[2025-05-04] MEDS: POTASSIUM CHLORIDE 20 mEq TABCR 40 MEQ PO (09:11)
[2025-05-04] MEDS: TOPIRAMATE 100 MG TABLET 150 MG PO (09:11)
[2025-05-04] MEDS: predniSONE 20 MG TABLET 40 MG PO (09:12)
--- NOTE | 2025-05-04 09:30 | ESDS_ITS ---
Planned Discharge Date 05/04/25 DS: Providers Provider Date of admission: 04/29/25 20:48 Primary care physician: Veronica Jose MD Admitting Provider: Sylvester Vargas MD Attending Provider on Admission: Gareth Raymond MD Consults: 04/29/25 19:52 Consult to Gastroenterology Stat Comment: Consulting Provider: Ayanna Aguilar 04/30/25 06:37 Consult to Cardiology Routine Comment: Consulting Provider: Shaquille Clark 05/01/25 16:05 Referral Physical Therapy Routine Comment: Physician Instructions: Referral Registered Dietitian Routine Comment: Attending Provider on DC: Gareth Raymond MD Discharging Provider: Gareth Raymond MD DS: Diagnosis Problem List Completed Was Problem List Reviewed/Reconciled?: Yes Hospital Course Hospital Course Hospital course: Reason for hospitalization: distributive shock, adrenal insuff, GI bleed Kavita Kwon is 59 yr female with PMH of hypertension, chronic pain, cervical cancer s/p hysterectomy,radiation and chemotherapy [1985,2002] in remission, status post total gastrectomy with reconstruction in [facility]2018], migraine headaches, Lupus, previous CVA, and hyperlipidemia who presented to [facility] ED on 04/29/25 due to worsening weakness/fatigue for past week. Patient would sleep for most of the days and still not feel rested. Also endorsed diarrhea co-inciding with the fatigue, decreased appetite, and unintentional weight loss. Stated that she would soil herself and needed to wear diaper. Vitals were unstable at outpatient PCP clinic and told to come to ED. ED vitals showed hypotension 80s/50s, bradycardic in the 40s, glucose level of 40. Also remarkable to AKIRA with Cr 1.7 ( baseline of 1.3). Her hemoglobin 9.6 on admission with low iron (48). EKG showed sinus bradycardia. Chest x-ray showed mild congestion. CT abdomen/pelvis showed mild rectal thickening. Patient received dextrose IV fluids, 1 amp of dextrose, and IV atropine. Her heart rate improved but her blood pressure remained critical. She was admitted into ICU for vasopressors. Sources of shock including cardiogenic and infection were ruled. Possible cause 2/2 verapamil toxicity which was treated with reversal agent calcium gluconate. Later on, patient stated that shewas in remission from lupus for few months but re started prednisone at home for possible flare. Endorsed abrupt discontinuation of the steroids which may have also worsened her symptoms. (patient follows rheumatology Dr Oreilly in [place]. While in ICU, she was started on midodrine 5mg PRN after off the levophed. Started on Levothyroxine 50mcg (TSH 6.37, free T4 low 0.83), and hydrocortisone for suspicion of adrenal insufficiency (cortisol levels pending). ICU started IV iron therapy: Venofer 200mg x [address] Aguilar consulted for GI bleed. EGD from 05/02 was negative for any lesions or bleeding. Inpatient colonoscopy on 05/03 positive for hemorrhoids and mild erythematous mucosa sigmoid colon with biopsies taken. Her prednisone dose was tapered to p.o. 40 mg daily. Her hemodynamic status improved and she remained stable. Additional workup for causes of fatigue including B12 deficiency, vitamin D deficiency done. B12 was greater than 2000 and vitamin D results pending. Renal u/s was negative for renal artery stenosis done as workup for resistant hypertension. Cardiology Dr. Clark was consulted who agreed to discontinue all antihypertensives and did not feel any additional workup was needed from cardiology standpoint. Patient encouraged to follow-up with PCP to repeat labs including TSH, follow-up with vitamin D, cortisol, and lupus anticouagulants. Patient is now in stable condition and ready for discharge. Recommendations were given as below. Discharge Recommendations: Stop taking previous blood pressure medications until you see your PCP. Stop taking B12 supplement due to high levels. Take aspirin 81 mg daily due to history of stroke. Continue taking your prednisone dose as prescribed for lupus. See your PCP/pure pak machine operator for taper dose. Follow up with GI in 2-4 weeks for colonoscopy biopsy results. Follow up with PCP for results of vitamin D, cortisol, and Lupus labs. 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 Raymond. Aurelia Jose MD, PGY-1 Time Spent with Patient Time attestation: Total time spent providing and/or coordinating discharge services: Time spent: Greater than 30 minutes Exam Vital Signs Temp Pulse Resp BP Pulse Ox O2 Del Method O2 Flow Rate 97.9 F 59 L 20 121/66 96 Room Air 3 05/04/25 08:00 05/04/25 08:00 05/04/25 08:00 05/04/25 08:00 05/04/25 08:00 05/04/25 08:00 05/03/25 20:40 Narrative Exam General:Middle age female, No acute distress, cooperative HEENT: NCAT, No JVD noted. Mucosa moist. Pupils are equal and reactive to light bilaterally Cardiovascular: Normal S1 and S2. Regular rate and rhythm. Respiratory: Lungs are clear to auscultation bilaterally. No wheezing or crackles heard. Abdomen: Soft, nontender, not distended, normal bowel sounds. Healed lower abdomen surgical scar, surgical umbilicus. Skin: Warm to touch, dry, no rashes noted, lots of tattoos, facial piercings Musculoskeletal: No gross injuries. Able to move all 4 extremities. No pitting edema Neuro: Alert and oriented x3. No focal neuro deficits. Psych: Normal affect and mood Discharge Plan Plan Patient Disposition: HOME (Self Care) Patient condition on transfer: Stable Prescriptions/Referrals Prescriptions/Med Rec: New aspirin 81 mg tablet,delayed release (DR/EC) 81 mg PO QDAY 30 Days Qty: 30 0RF prednisone 20 mg tablet 20 mg PO QDAY 14 Days Qty: 14 0RF Rx Instructions: See PCP for taper or continuing therapy Continued gabapentin 300 MG capsule 300 mg PO TID Qty: 0 montelukast [Singulair] 10 MG tablet 10 mg PO HS Qty: 0 bupropion HCl 150 mg tablet sustained-release 12 hr 300 mg PO QDAY Patient Comments: take 1 tablet by mouth once daily hydrocodone-acetaminophen 5-325 mg tablet 5 - 325 tab PO BID pantoprazole 40 mg tablet,delayed release (DR/EC) 40 mg PO QDAY biotin 10,000 mcg Capsule 10,000 mcg PO QDAY ferrous sulfate [Iron (ferrous sulfate)] 325 mg (65 mg iron) Tablet 325 mg PO QDAY albuterol sulfate 90 mcg/actuation HFA aerosol inhaler 90 mcg INHALATION PRN PRN (Reason: Wheezing) rosuvastatin 5 mg tablet 5 mg PO QDAY topiramate 50 mg tablet 50 mg PO TID Held cholecalciferol (vitamin D3) [Vitamin D3] 50 mcg (2,000 unit) Capsule 50 mcg PO BID Hold Instructions: Resume on 05/18/25. Resume pending lab results and pcp evaluation Discontinued carisoprodol 350 MG tablet 350 mg PO QIDPRN PRN (Reason: PAIN) 30 Days Qty: 0 verapamil [Calan SR] 240 MG tablet extended release 240 mg PO HS Qty: 0 escitalopram oxalate [Lexapro] 20 MG tablet 20 mg PO QDAY 30 Days Qty: 0 clonidine HCl 0.1 mg tablet 0.1 mg PO QDAY Complex B-100 Tablet Extended Release 1 tab PO QDAY cyanocobalamin (vitamin B-12) [Vitamin B-12] 100 mcg Tablet 100 mcg PO QDAY lisinopril 20 mg tablet 20 mg PO QDAY verapamil 180 mg tablet extended release 180 mg PO QDAY aspirin 81 mg tablet,delayed release (DR/EC) 81 mg PO BID Patient Comments: take 1 tablet by mouth once daily Referrals: Veronica Jose MD [Primary Care Provider] - Ayanna Aguilar MD [Physician] - Mc Oreilly MD [Referring Provider] - Patient/Caregiver Discharge Instructions Other Discharge Activity Instructions:: Stop taking previous blood pressure medications until you see your PCP. Stop taking B12 supplement due to high levels. Take aspirin 81 mg daily due to history of stroke. Continue taking your prednisone dose as prescribed for lupus. See your PCP/brownfield redevelopment site manager for taper dose. Follow up with GI in 2-4 weeks for colonoscopy biopsy results. Follow up with PCP for results of vitamin D, cortisol, and Lupus labs. Education Materials: Hypotension Dc, ED Low Blood Pressure, All Causes Print Language: Mongolian Stand Alone Forms: Kayce Award Info., Patient Portal Info Letter Discharge Order Discharge Orders: Discharge (Routine); Ordered 05/04/25 Ordered By: Aurelia Jose Quality Discharge Quality Measures VTE prophylaxis Attestestation Attestation I attest that I was physically present for the evaluation, physical examination, lab and imaging review of the patient with the residents. I discussed the case with the residents and agree with the findings and plans of care as documented above. Gareth Raymond MD
[2025-05-04] MEDS: VITAMIN B COMPLEX TABLET 1 TAB PO (10:05)
[2025-05-04] MEDS: IRON SUCROSE CPLX INJ 20 MG/ML VIAL 5 ML 200 MG IVP (10:05)
--- NOTE | 2025-05-04 11:19 | PC.SS ---
Wes met with patient to discuss discharge plan. Patient reported that she will return home and her will take her home. IMM provided. No social concerns at this time.
[2025-05-04] MEDS: oxyCODONE/APAP 5/325 TABLET 1 TAB PO (11:35)
--- NOTE | 2025-05-04 13:05 | PD.RESPRO ---
Documentation for date of: 05/04/25 Subjective Subjective Interval history: Patient is a 59 year old female with past medicla history hypertension, hyperlipidemia, migraines, COPD, gastric cancer s/p gastric bypass and now reconstruction of gastric bypass, cervical cancer s/p hysterectomy w/ radiation and chemotherapy (1985,2002), and chronic pain. Presented to the ER via EMS with chief complain of lower blood pressure and slow heart beat found in PCP office. Patient admitted overnight on 04/30/2025 directly inot the ICU for shock required vaopressor support, patient subsequently found to have hypothyroidsim and adrenal insufficiency likely secondary to abrupt termination of steroids. 05/04/2025: No overnight events. Pateint was examined at bedside this morning. Patient denied chest pain or shortness of breath. Patient is ambulaitng well and stated her heart range has not dropped low. Denied sensation of skipped beat or palpitations. Exam Vital Signs Temp Pulse Resp BP Pulse Ox O2 Del Method O2 Flow Rate 97.5 F 62 18 118/70 100 Room Air 3 05/04/25 12:00 05/04/25 12:05/04/25 12:05/04/25 12:05/04/25 12:05/04/25 12:05/03/25 20:40 Narrative Exam General Appearance: Alert & Oriented X3, well-nourished female who is lying in bed in no acute distress HEENT: Skull symmetrical and atraumatic. Conjunctivae pale pink and moist. Pupils equal, round, reactive to light and accommodation (PERRL). External ear without lesion or discharge. Straight, nares patient, mucosa pink, no discharge. No thyroid nodule appreciated. Cardio: Normal Rate and Rhythm with S1 and S2 heart sounds. No murmurs or extra heart sounds auscultated. No bruits on carotid auscultation. No peripheral edema or cyanosis. Lungs: Symmetric with good expansion. Chest and back non-tender. Breath sounds vesicular without crackles, wheezing or rhonchi Abdomen: Non-tender, Non-distended, Normal Reactive Bowel Sounds Neuro: Alert, cooperative, oriented to person, place, and time. Speech clear. CN grossly intact. Upper motor strength 5/5 and Lower motor strength 5/5. Sensation intact. Objective Labs 05/04/25 05:47 05/04/25 05:47 Labs: Laboratory Results - last 24 hr 05/04/25 05:47 WBC 6.1 RBC 2.85 L Hgb 9.1 L Hct 26.5 L MCV 93 MCH 31.9 MCHC 34.3 RDW Std Deviation 45.7 Plt Count 131 L Neut % (Auto) 56 Lymph % (Auto) 24 [place] % (Auto) 6 Eos % (Auto) 12 H Baso % (Auto) 1 Neut # (Auto) 3.4 Lymph # (Auto) 1.4 [place] # (Auto) 0.4 Eos # (Auto) 0.8 H Baso # (Auto) 0.1 Immature Gran # (Auto) 0.02 H Absolute Nucleated RBC 0.00 Immature Gran % 0 Nucleated RBC % 0 Sodium 148 H Potassium 3.6 Chloride 115 H Carbon Dioxide 23.5 Anion Gap 10 BUN 13 Creatinine 0.9 Estim Creat Clear Calc 63.8 eGFR > 60 BUN/Creatinine Ratio 14 Glucose 82 Calculated Osmolality 293 Calcium 7.9 L Corrected Calcium 8.6 Phosphorus 2.4 Albumin 3.1 L Quality Measures Quality Measures none Assessment & Plan Assessment Current Active Medications: Generic Name Dose Route Start Last Admin Trade Name Freq PRN Reason Stop Dose Admin Acetaminophen 650 mg 04/30/25 08:44 Acetaminophen 325 Mg Tablet PO 05/30/25 08:43 Q4HR PRN Pain 1-3 or Temp >100.3 Albuterol 2.5 mg 05/01/25 03:37 Albuterol Rt 2.5 Mg/0.5 Ml Nebu INH 05/31/25 06:59 Q6HRRT PRN SHORTNESS OF BREATH OR WHEEZE Albuterol/Ipratropium 3 ml 04/30/25 11:00 05/04/25 07:21 Albuterol/Ipratropium (Duoneb) Rt Perri 3 Ml Nebu INH 05/30/25 10:59 3 ml BID SULEMAN Administration Atorvastatin Calcium 10 mg 04/29/25 21:00 05/03/25 21:46 Atorvastatin Calcium 10 Mg Tablet PO 05/29/25 20:59 10 mg HS SULEMAN Administration Bupropion HCl 300 mg 04/30/25 09:00 05/04/25 09:11 Bupropion Hcl Xl 150 Mg Tabcr PO 05/30/25 08:59 300 mg QDAY SULEMAN Administration Dextrose 25 ml 05/03/25 05:59 Dextrose 50%-Water Inj 50 Ml Syringe IV 06/02/25 05:58 Q15MIN PRN BG 50-70 responsive npo pt Dextrose 50 ml 05/03/25 05:59 Dextrose 50%-Water Inj 50 Ml Syringe IV 06/02/25 05:58 Q15MIN PRN BG <50 OR BG <70 & pt unresponsive Iron Sucrose 200 mg 05/01/25 12:30 05/04/25 10:05 Iron Sucrose Cplx Inj 20 Mg/Ml Vial 5 Ml IVP 05/05/25 12:40 200 mg DAILY SULEMAN Administration Levothyroxine Sodium 50 mcg 05/02/25 06:00 05/04/25 05:05 Levothyroxine Sodium 25 Mcg Tablet PO 06/01/25 05:59 50 mcg ACBR SULEMAN Administration Midodrine 5 mg 05/01/25 12:39 Midodrine 5 Mg Tablet PO 05/31/25 13:59 TID PRN MAP <65 Oxycodone/Acetaminophen 1 tab 04/29/25 20:47 05/04/25 11:35 Oxycodone/Apap 5/325 Tablet PO 05/04/25 20:46 1 tab Q6H PRN Administration PAIN SCALE 4-6 (Moderate Pantoprazole Sodium 40 mg 05/02/25 21:00 05/04/25 09:10 Pantoprazole Inj 40 Mg Vial IVP 06/01/25 20:59 40 mg BID SULEMAN Administration Prednisone 40 mg 05/03/25 09:00 05/04/25 09:12 Prednisone 20 Mg Tablet PO 05/10/25 08:27 40 mg QDAY SULEMAN Administration Fluticasone/Salmeterol 1 puff 04/29/25 21:00 05/04/25 06:31 Fluticasone/Salmeterol 250/50 14 Dose Inh INH 05/29/25 20:59 1 puff BIDRT SULEMAN Administration Sodium Chloride 3 ml 04/29/25 20:51 05/01/25 03:37 Sodium Chloride Rt Perri 0.9% 3 Ml Nebu INH 05/29/25 20:50 3 ml PRN PRN Administration SOLN Topiramate 150 mg 04/29/25 21:00 05/04/25 09:11 Topiramate 100 Mg Tablet PO 05/29/25 20:59 150 mg BID SULEMAN Administration Vitamin B Complex/Vit C/Folic Acid 1 tab 05/01/25 12:45 05/04/25 10:05 Vitamin B Complex Tablet PO 05/31/25 12:44 1 tab QDAY SULEMAN Administration Plan Patient is a 59 year old female with past medicla history hypertension, hyperlipidemia, migraines, COPD, gastric cancer s/p gastric bypass and now reconstruction of gastric bypass, cervical cancer s/p hysterectomy w/ radiation and chemotherapy (1985,2002), and chronic pain. Patient was admitted directly into the ICU for shock, likely cardiogenic. Cardiology following given sinus bradycardia. #Symptomatic Bradycardia likely multi-factorial Patient recently found patsy cardiac with HR on admission in low 40s likely multi-factorial in the setting of recent increase dose of verapamil, hypothyrodism, and concern for adrenal insufficiency in the setting of abrupt termination of steriods. Bradycardia resolved, may benefit from cardiology follow to rule out any arrhythmias. Plan -Calcium Gluconate adminstered X 1 in ICU -Discontinued Verapamil -Continue to monitor HR -Patient would benefit from close follow up cardiology. #Hypertension Given hypotension on admission, currently stopped all antihypertensive medication. Patient would benefit from clsoe follow up with PCP #Hypothyroidsim Patient was note to have hypothyroidism with TSH level of 6.37 and free T of 0.83. Patient was started on Levothyroxine Plan -Levothyroxine 50 mcg -Repeat TSH and T4 outpatient, may benefit from endocrinology consult for possible hypothyroidism secondary to autoimmune conditions. #Upper GI Bleed bleed #Normocytic Anemia S/p EGD on 05/02/2025 noted to have distal esophgitis and s/p Colonoscopy noted hemorrhoids and erythematous mucosa. Given colonoscopy finding consider iron deficiency. Plan -GI Consulted, follow up with DR. Aguilar, 2 to 4 weeks - consider #Hyperlipidemia #History of CVA Continue home medication of atorvastatin. May benefit from higher statin given history of CVA #COPD No acute COPD exacerbration noted. Continue Duonebs and Budesonid e #Migraines Continue home medication Health Maintenance: Disp: Pt is currently admitted to floors for further management of bradycardia, cardiology following, likely discharge today. FEN: Regular diet DVT: compression device Code: Full code - The patient's plan was discussed with attending Dr. Kadie Lozoya MD PGY1 Internal Medicine Attending Provider Attestation/Addendum I have personally seen and examined the patient separately on the above date of service and discussed the plan of care with the resident. I reviewed the resident Dr. Ebony Lozoya consultation progress note and agree with the resident findings and plan in the note above and have also edited the documentation to reflect my findings and plan. Osei Engle M.D. Interventional Cardiology
--- NOTE | 2025-05-04 17:44 | PD.IMPROG ---
Documentation for date of: 05/04/25 Subjective Subjective Interval history: Late entry for the note Case discussed with the internal medicine team Okay to discharge patient home to be followed as an outpatient Upper endoscopy showed almost subtotal gastrectomy with gastroenterostomy Colonoscopy showed internal hemorrhoids mild erythema of the left colon Otherwise no malignancy Exam Vital Signs Temp Pulse Resp BP Pulse Ox O2 Del Method O2 Flow Rate 97.5 F 62 18 118/70 100 Room Air 3 05/04/25 12:00 05/04/25 12:00 05/04/25 12:00 05/04/25 12:00 05/04/25 12:00 05/04/25 12:00 05/03/25 20:40 Objective Labs 05/04/25 05:47 05/04/25 05:47 Labs: Laboratory Results - last 24 hr 05/04/25 05:47 WBC 6.1 RBC 2.85 L Hgb 9.1 L Hct 26.5 L MCV 93 MCH 31.9 MCHC 34.3 RDW Std Deviation 45.7 Plt Count 131 L Neut % (Auto) 56 Lymph % (Auto) 24 [place] % (Auto) 6 Eos % (Auto) 12 H Baso % (Auto) 1 Neut # (Auto) 3.4 Lymph # (Auto) 1.4 [place] # (Auto) 0.4 Eos # (Auto) 0.8 H Baso # (Auto) 0.1 Immature Gran # (Auto) 0.02 H Absolute Nucleated RBC 0.00 Immature Gran % 0 Nucleated RBC % 0 Sodium 148 H Potassium 3.6 Chloride 115 H Carbon Dioxide 23.5 Anion Gap 10 BUN 13 Creatinine 0.9 Estim Creat Clear Calc 63.8 eGFR > 60 BUN/Creatinine Ratio 14 Glucose 82 Calculated Osmolality 293 Calcium 7.9 L Corrected Calcium 8.6 Phosphorus 2.4 Albumin 3.1 L Impressions Impression: Status postgastrectomy and gastroenterostomy 2+ internal hemorrhoid Erythema left colon Okay to be discharged and followed as an outpatient Assessment & Plan A&P Narrative # Melena. 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 in the morning and do the endoscopy tomorrow evening Thank you very much for the opportunity to participate in the care of this patient Time Spent With Patient Time: Total time spent is greater than 50% in coordination of care (as documented) at patient's floor/unit and/or counseling patient:
[2025-05-07 03:04] LABS: Cardiolipin Ab IgA <2.0 APL-U/mL; Cardiolipin Ab IgG <2.0 GPL-U/mL
[2025-05-07 07:06] LABS: B2-Glycoprotein I Ab IgA <2.0 U/mL; B2-Glycoprotein I Ab IgG <2.0 U/mL; B2-Glycoprotein I Ab IgM <2.0 U/mL; Cardiolipin Ab IgM <2.0 MPL-U/mL; Phos.Serine Ab IgG <9 U (< OR = 30); Phos.Serine Ab IgM <9 U (< OR = 30); Vitamin D,1,25 (OH)2,Total 46 pg/mL (18-72); Vitamin D2, 1,25 (OH)2 <8 pg/mL; Vitamin D3, 1,25 (OH)2 46 pg/mL
[2025-05-09 06:58] LABS: Factor V Leiden Mutation NEGATIVE
== END 2025-05-04 13:43 | disposition home or self-care (01) | DRG 368 ==
LOC: SERX 19:54 → SERHOLD 21:33 → S2SX 22:27 → S2NX 05-01 15:20
PROVIDERS: Family Medicine; Specialist; Student in an Organized Health Care Education/Training Program; Admitting Provider Student in an Organized Health Care Education/Training Program; Emergency Provider Emergency Medicine; PCP Internal Medicine; Visit Provider Student in an Organized Health Care Education/Training Program
PROC: (CPT 43239; principal; 2025-05-02 21:00)
PROC: 0DJD8ZZ Inspection of Lower Intestinal Tract, Via Natural or Artificial Opening Endoscopic (ICD-10-PCS; CPT 45378; principal; 2025-05-03 18:00)
DX: K20.91 Esophagitis, unspecified with bleeding (principal); R57.8 Other shock; N17.9 Acute kidney failure, unspecified; D62 Acute posthemorrhagic anemia; E27.49 Other adrenocortical insufficiency; G93.40 Encephalopathy, unspecified; G89.29 Other chronic pain; E78.5 Hyperlipidemia, unspecified; I10 Essential (primary) hypertension; G43.909 Migraine, unspecified, not intractable, without status migrainosus; R00.1 Bradycardia, unspecified; E16.2 Hypoglycemia, unspecified; E03.9 Hypothyroidism, unspecified; E78.00 Pure hypercholesterolemia, unspecified; Z90.3 Acquired absence of stomach [part of]; E83.51 Hypocalcemia; E86.0 Dehydration; I25.10 Atherosclerotic heart disease of native coronary artery without angina pectoris; K45.8 Other specified abdominal hernia without obstruction or gangrene; J44.9 Chronic obstructive pulmonary disease, unspecified; K64.8 Other hemorrhoids; M32.14 Glomerular disease in systemic lupus erythematosus; Z79.82 Long term (current) use of aspirin; Z79.899 Other long term (current) drug therapy; Z85.028 Personal history of other malignant neoplasm of stomach; Z85.41 Personal history of malignant neoplasm of cervix uteri; Z90.710 Acquired absence of both cervix and uterus; Z98.84 Bariatric surgery status; Z86.73 Personal history of transient ischemic attack (TIA), and cerebral infarction without residual deficits; Z92.3 Personal history of irradiation; Z92.21 Personal history of antineoplastic chemotherapy
CPT/HCPCS: 36415; 71045; 74176; 80048; 80053; 80069; 81001; 81241; 82270; 82533; 82607; 82652; 82728; 82746; 83540; 83550; 83605; 83735; 83880; 84439; 84443; 84484; 85025; 85610; 85730; 86146; 86147; 86148; 86850; 86900; 86901; 87040; 87081; 93005; 93306; 93975; 94640; 94664; 96360; 96374; 96375; 97161; 99285; A9270; J0461; J0613; J1171; J1200; J1720; J1756; J2250; J2470; J3010; J3420; J3490; J7030; J7050; J7120; J7512

== ENCOUNTER → 2025-05-09 | Outpatient (CLI) | payer MEDICARE, MEDICAID, SELFPAY ==
--- NOTE | 2025-05-09 07:30 | XR_ITS ---
Examination: MRI cervical spine without intravenous contrast Date and time of exam: May 09, 2025, 0740 hours INDICATIONS: Patient fell from a horse this week with injury to the neck, neck pain. Technique: Multiple axial and sagittal sections of the cervical spine to been obtained. T2 weighted sagittal sections, TR 3, 270, TE 117 T1-weighted sagittal sections, TR 500, TE 11 T1-weighted axial sections, TR 607, TE 12, axial sections TR 18, TE 27 and T2 weighted transverse sections, TR 3920, TE 122. Findings: Adequate alignment cervical vertebral bodies. No cervical fracture or bone contusion The odontoid is intact Normal basilar flow cervical cord Diffuse cervical disc desiccation C2-C3 no disc protrusion. C3-C4 2 mm central disc bulge C4-C5 no disc protrusion. C5-C6 advanced bilateral neural foraminal stenosis C6-C7 mild left neural foraminal stenosis C7-T1 no disc protrusion IMPRESSION: No cervical fracture C5-C6 advanced bilateral neural foraminal stenosis
== END | disposition home or self-care (01) ==
LOC: SMRI 07:01
PROVIDERS: PCP Internal Medicine; Referring Provider Internal Medicine; Visit Provider Internal Medicine
DX: M48.02 Spinal stenosis, cervical region (principal)
CPT/HCPCS: 72141

== ENCOUNTER → 2025-07-25 | Outpatient (CLI) | payer MEDICARE, MEDICAID, SELFPAY ==
--- NOTE | 2025-07-25 14:00 | XR_ITS ---
Examination: Arterial duplex lower extremity study. Date and time of exam: July 25, 2025 1429 hours INDICATIONS: Lower extremity edema and pain beginning 6 months ago Findings: Duplex sonographic imaging of the lower extremity arteries using B-mode/Dior scale imaging and Doppler spectral analysis and color flow. Ankle brachial indices have been recorded. Right common femoral artery demonstrates triphasic flow. Right superficial femoral artery demonstrates triphasic flow. Right popliteal artery demonstrates triphasic flow. Right posterior tibial artery demonstrated triphasic flow. Right ankle/brachial index is 1.1. Left common femoral artery demonstrates triphasic flow. Left superficial femoral artery demonstrates triphasic flow. Left popliteal artery demonstrates triphasic flow. Left posterior tibial artery demonstrated triphasic flow. Left ankle/brachial index is 1.2. Impression: Negative study
== END | disposition home or self-care (01) ==
PROVIDERS: PCP Internal Medicine
DX: R60.0 Localized edema (principal)
CPT/HCPCS: 93925